=== PATIENT | male | born 1980 | race Two or more races ===

== ENCOUNTER 2017-04-23 08:56 | Inpatient (IN) | payer MEDICARE, BC ==
[2017-04-23] MEDS ORDERED: Sodium Chloride 0.9% 10 ML Syringe FLUSH PRN (09:38)
[2017-04-23] MEDS ORDERED: Famotidine 20 MG/2 ML SDV IVPUSH ONE (09:47)
[2017-04-23] MEDS ORDERED: Ondansetron 4 MG/2 ML SDV IVPUSH ONE (09:47)
[2017-04-23] MEDS ORDERED: Sodium Chloride 0.9% 1,000 ML IV SCH ×2 (10:00→11:00)
--- NOTE | 2017-04-23 10:40 | EDM.PDOC ---
ED HPI GENERAL MEDICAL PROBLEM - General Chief Complaint: Abdominal Pain Stated Complaint: DIVERTICULITIS Time Seen by Provider: 04/23/17 09:15 Source of Information: Reports: Patient, RN Notes Reviewed - History of Present Illness INITIAL COMMENTS - FREE TEXT/NARRATIVE: 37-year-old male comes in with abdominal pain nausea vomiting and diarrhea. He did start with abdominal discomfort 3 days ago. He was evaluated at [facility] 2 days ago. Due to history of diverticulitis and left lower abdominal discomfort was given a clinical diagnosis of diverticulitis. He was started on Cipro and Flagyl. He now has severe upper abdominal discomfort with intermittent cramping and also has developed more severe nausea, intermittent vomiting and also has been having frequent repetitive watery diarrhea. He does have history of a kidney transplant about 6 years ago. Has been doing well with that. No fever or chills. No chest pain or difficulty breathing. His mouth does feel dry Treatments RESEARCH ADVISOR: Reports: Other (see below) Other Treatments RESEARCH ADVISOR: zofran Abdominal Pain Score (Numeric/FACES): 4 - Related Data Allergies Allergy/AdvReac Type Severity Reaction Status Date / Time No Known Allergies Allergy Verified 04/23/17 09:08 Home Meds: Home Meds Albuterol Sulfate [Proair Respiclick] 1 puff INH Q4HR PRN 04/23/17 [History] Capsaicin [Zostrix 0.025% Crm] 1 applic TOP TID PRN 04/23/17 [History] Ciprofloxacin HCl [Cipro] 500 mg PO BID 04/23/17 [History] HYDROmorphone [Dilaudid] 4 mg PO ASDIRECTED PRN 04/23/17 [History] Metoprolol Tartrate [Lopressor] 12.5 mg PO BID 04/23/17 [History] Metoprolol Tartrate [Lopressor] 25 mg PO BID 04/23/17 [History] Mycophenolate Mofetil [Cellcept] 500 mg PO BID 04/23/17 [History] Omeprazole Magnesium [Prilosec Otc] 20 mg PO DAILY 04/23/17 [History] Simvastatin [Zocor] 20 mg PO BEDTIME 04/23/17 [History] Tacrolimus [Prograf] 1 mg PO BID 04/23/17 [History] metroNIDAZOLE [Flagyl] 500 mg PO TID 04/23/17 [History] traZODone HCl [Trazodone HCl] 100 mg PO BEDTIME 04/23/17 [History] Past Medical History Gastrointestinal History: Reports: Diverticulosis Genitourinary History: Reports: Dialysis, Renal Disease, Other (See Below) Other Genitourinary History: kidney transplant Musculoskeletal History: Reports: Other (See Below) Other Musculoskeletal History: ankle - Past Surgical History GI Surgical History: Reports: Appendectomy Social & Family History - Tobacco Use Smoking Status *Q: Never Smoker - Caffeine Use Caffeine Use: Reports: Soda, Tea - Recreational Drug Use Recreational Drug Use: No ED ROS GENERAL - Review of Systems Review Of Systems: See Below Constitutional: Denies: Fever, Chills, Diaphoresis HEENT: Reports: No Symptoms Respiratory: Denies: Shortness of Breath, Pleuritic Chest Pain Cardiovascular: Denies: Chest Pain GI/Abdominal: Reports: Abdominal Pain, Diarrhea, Nausea, Vomiting. Denies: Hematochezia, Melena : Reports: No Symptoms Musculoskeletal: Reports: No Symptoms Skin: Reports: No Symptoms Neurological: Reports: No Symptoms ED EXAM, GI/ABD - Physical Exam Exam: See Below General Appearance: Alert, Mild Distress Throat/Mouth: Normal Inspection, Other (Oral mucosa is somewhat dry) Head: Atraumatic. No: Facial Swelling Neck: Supple, Full Range of Motion Respiratory/Chest: No Respiratory Distress, Lungs Clear, Normal Breath Sounds Cardiovascular: Regular Rate, Rhythm GI/Abdominal: Soft, Tenderness (Mild tenderness upper mid abdomen, lower abdomen is soft and nontender at this time). No: Guarding, Rebound Back Exam: No: CVA Tenderness (L), CVA Tenderness (R) Extremities: No: Pedal Edema, Leg Pain Neurological: Alert, Oriented, No Motor/Sensory Deficits Skin Exam: Warm, Dry, Normal Color, No Rash Course - Vital Signs Last Recorded V/S: Last Vital Signs Temp 97.0 F 04/23/17 09:08 Pulse 73 04/23/17 09:08 Resp 16 04/23/17 09:08 BP 141/92 H 04/23/17 09:08 Pulse Ox 95 04/23/17 09:08 - Orders/Labs/Meds Orders: Active Orders 24 hr Category Date Time Status Peripheral IV Care [RC] . DIRECTED Care 04/23/17 09:38 Active Sodium Chloride 0.9% [Normal Saline] 1,000 ml Med 04/23/17 10:00 Active IV ONETIME Sodium Chloride 0.9% [Normal Saline] 1,000 ml Med 04/23/17 11:00 Active IV ONETIME Sodium Chloride 0.9% [Saline Flush] Med 04/23/17 09:38 Active 10 ml FLUSH ASDIRECTED PRN Peripheral IV Insertion Adult [OM.PC] Stat Oth 04/23/17 09:38 Ordered Medication Orders Sodium Chloride (Normal Saline) 1,000 mls @ 999 mls/hr IV ONETIME ALESSANDRO Last Admin: 04/23/17 10:02 Dose: 999 mls/hr Sodium Chloride (Normal Saline) 1,000 mls @ 999 mls/hr IV ONETIME ALESSANDRO Last Admin: 04/23/17 11:25 Dose: 999 mls/hr Sodium Chloride (Saline Flush) 10 ml FLUSH ASDIRECTED PRN PRN Reason: Keep Vein Open Last Admin: 04/23/17 09:54 Dose: 10 ml Labs: Laboratory Tests 04/23/17 04/23/17 04/23/17 Range/Units 09:50 09:50 09:50 WBC 9.11 H (4.23-9.07) K/mm3 RBC 4.80 (4.63-6.08) M/mm3 Hgb 13.5 L (13.7-17.5) gm/L Hct 40.4 (40.1-51.0) % MCV 84.2 (79.0-92.2) fl MCH 28.1 (25.7-32.2) pg MCHC 33.4 (32.2-35.5) g/dl RDW Std Deviation 40.9 (35.1-43.9) fL Plt Count 189 (163-337) K/mm3 MPV 10.2 (9.4-12.3) fl Neut % (Auto) 86.9 H (34.0-67.9) % Lymph % (Auto) 5.7 L (21.8-53.1) % [place] % (Auto) 6.8 (5.3-12.2) % Eos % (Auto) 0.2 L (0.8-7.0) Baso % (Auto) 0.1 (0.1-1.2) % Neut # (Auto) 7.91 H (1.78-5.38) K/mm3 Lymph # (Auto) 0.52 L (1.32-3.57) K/mm3 [place] # (Auto) 0.62 (0.30-0.82) K/mm3 Eos # (Auto) 0.02 L (0.04-0.54) K/mm3 Baso # (Auto) 0.01 (0.01-0.08) K/mm3 Manual Slide Review Abnormal smear Sodium 136 (136-145) mEq/L Potassium 4.4 (3.5-5.1) mEq/L Chloride 103 (98-107) mEq/L Carbon Dioxide 20 L (21-32) mEq/L Anion Gap 17.4 H (5-15) BUN 43 H (7-18) mg/dL Creatinine 3.1 H (0.7-1.3) mg/dL Est Cr Clr Drug Dosing 28.87 mL/min Estimated GFR (MDRD) 23 (>60) mL/min BUN/Creatinine Ratio 13.9 L (14-18) Glucose 143 H (74-106) mg/dL Calcium 9.9 (8.5-10.1) mg/dL Total Bilirubin 0.5 (0.2-1.0) mg/dL AST 11 L (15-37) U/L ALT 31 (16-63) U/L Alkaline Phosphatase 100 (46-116) U/L C-Reactive Protein 15.1 H* (<1.0) mg/dL Total Protein 8.7 H (6.4-8.2) g/dl Albumin 4.2 (3.4-5.0) g/dl Globulin 4.5 gm/dL Albumin/Globulin Ratio 0.9 L (1-2) Meds: Medications Generic Name Dose Route Start Last Admin Trade Name Freq PRN Reason Stop Dose Admin Sodium Chloride 1,000 mls @ 999 mls/hr 04/23/17 10:00 04/23/17 10:02 Normal Saline IV 999 mls/hr ONETIME ALESSANDRO Administration Sodium Chloride 1,000 mls @ 999 mls/hr 04/23/17 11:00 04/23/17 11:25 Normal Saline IV 999 mls/hr ONETIME ALESSANDRO Administration Sodium Chloride 10 ml 04/23/17 09:38 04/23/17 09:54 Saline Flush FLUSH 10 ml ASDIRECTED PRN Administration Keep Vein Open Discontinued Medications Generic Name Dose Route Start Last Admin Trade Name Sheila PRN Reason Stop Dose Admin Diatrizoate Meglum/Diatrizoate Sod 90 ml 04/23/17 12:29 04/23/17 12:50 Gastrografin 37% PO 04/23/17 12:30 90 ml ONETIME ONE Administration Famotidine 20 mg 04/23/17 09:47 04/23/17 10:01 Pepcid IVPUSH 04/23/17 09:48 20 mg ONETIME ONE Administration Ondansetron HCl 4 mg 04/23/17 09:47 04/23/17 10:00 Zofran IVPUSH 04/23/17 09:48 4 mg ONETIME ONE Administration - Re-Assessments/Exams Free Text/Narrative Re-Assessment/Exam: 04/23/17 11:14. White both, 9100 with a left shift, C-reactive protein is 15. Creatinine 3.1, BUN and anion gap also elevated. Have given 1 L of fluid, started on a second liter of IV fluid. He will benefit from admission, further IV hydration and to switch over to IV antibiotics. I discussed this with Dr. Aragon our hospitalist on duty. She would like to have a CT study done realizing that with his elevated creatinine we will not be able to do IV contrast. He does feel better after IV fluid that has been given along with IV Zofran and IV Pepcid. He continues to have some mild upper mid abdominal discomfort, no major lower abdominal tenderness at this time. As noted he has had diverticulitis in the past. Departure - Departure Time of Disposition: 12:30 Disposition: Admitted As Inpatient 64 Clinical Impression: Renal insufficiency Abdominal pain Qualifiers: Abdominal location: generalized Qualified Code(s): R10.84 - Generalized abdominal pain - Discharge Information - My Orders Last 24 Hours: My Active Orders 04/23/17 09:38 Peripheral IV Care [RC] . DIRECTED Sodium Chloride 0.9% [Saline Flush] 10 ml FLUSH ASDIRECTED PRN Peripheral IV Insertion Adult [OM.PC] Stat 04/23/17 10:00 Sodium Chloride 0.9% [Normal Saline] 1,000 ml IV ONETIME 04/23/17 11:00 Sodium Chloride 0.9% [Normal Saline] 1,000 ml IV ONETIME - Assessment/Plan Last 24 Hours: My Active Orders 04/23/17 09:38 Peripheral IV Care [RC] . DIRECTED Sodium Chloride 0.9% [Saline Flush] 10 ml FLUSH ASDIRECTED PRN Peripheral IV Insertion Adult [OM.PC] Stat 04/23/17 10:00 Sodium Chloride 0.9% [Normal Saline] 1,000 ml IV ONETIME 04/23/17 11:00 Sodium Chloride 0.9% [Normal Saline] 1,000 ml IV ONETIME
[2017-04-23] MEDS ORDERED: Diatrizoate Meglumine/Diatrizoate Sodium 37% 120 ML Bottle PO ONE (12:29)
--- NOTE | 2017-04-23 13:31 | CT ---
CT abdomen and pelvis Technique: Multiple axial sections were obtained from above the dome of the diaphragm inferiorly through the pubic symphysis. Intravenous contrast not utilized. Oral contrast has been given. Comparison: No previous exam. Findings: Inflammatory change is seen around a portion of the colon at the junction of the descending and sigmoid regions. Diverticuli are seen within this area. Bowel wall thickening is seen in the area of inflammatory change. There is some extraluminal air being seen within this same area. No fluid collections to indicate abscess at this time. These findings are felt compatible with diverticulitis. Right pelvic kidney is seen felt compatible with transplant kidney. Visualized lung bases are clear. Noncontrast appearance of the liver and spleen appears within normal limits. Atrophic [place] kidneys are seen. Cyst is noted within the left kidney which measures approximately 1.2 cm. Adrenal glands show no nodule. Pancreas shows no discrete abnormality. Aorta shows no aneurysmal dilatation. No retroperitoneal adenopathy or mesenteric abnormalities are seen. No pelvic mass or adenopathy is identified. Bone window settings were reviewed which appear within normal limits for the patient's age. Impression: 1. Findings compatible with diverticulitis as described above. 2. Other incidental findings. Diagnostic code #3
--- NOTE | 2017-04-23 14:28 | PCM.HP ---
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 Had OP treatment of diverticulitis with Flagyl and Cipro. Did not have abdominal radiographic studies when seen in the clinic. Has no primary MD or healthcare provider on a regular basis. Received his kidney from his spouse, ~6 years ago. Onset of Symptoms: Reports: Gradual Duration of Symptoms: Reports: Day(s):, Getting Worse Location: Reports: Abdomen Severity: Moderate Improves with: Reports: Medication Worsens with: Reports: None Associated Symptoms: Reports: Loss of Appetite, Nausea/Vomiting Abdominal Pain Score (Numeric/FACES): 4 - Related Data Allergies/Adverse Reactions: Allergies Allergy/AdvReac Type Severity Reaction Status Date / Time No Known Allergies Allergy Verified 04/23/17 09:08 Home Medications: Home Meds Acetaminophen [Tylenol Extra Strength] 2 tab PO Q6HR PRN 04/23/17 [History] Ciprofloxacin HCl [Cipro] 500 mg PO BID 04/23/17 [History] Ergocalciferol (Vitamin D2) [Vitamin D2] 2 tab PO DAILY 04/23/17 [History] Metoprolol Tartrate [Lopressor] 12.5 mg PO BID 04/23/17 [History] Mycophenolate Mofetil [Cellcept] 500 mg PO Q12HR 04/23/17 [History] Omeprazole Magnesium [Prilosec Otc] 20 mg PO DAILY PRN 04/23/17 [History] Simvastatin [Zocor] 20 mg PO BEDTIME 04/23/17 [History] Tacrolimus [Prograf] 1 tab PO 2000 04/23/17 [History] Tacrolimus [Prograf] 2 mg PO DAILY 04/23/17 [History] metroNIDAZOLE [Flagyl] 500 mg PO TID 04/23/17 [History] traZODone HCl [Trazodone HCl] 100 mg PO BEDTIME 04/23/17 [History] Past Medical History Gastrointestinal History: Reports: Diverticulosis Genitourinary History: Reports: Dialysis, Renal Disease, Other (See Below) Other Genitourinary History: kidney transplant Musculoskeletal History: Reports: Other (See Below) Other Musculoskeletal History: ankle - Past Surgical History GI Surgical History: Reports: Appendectomy Social & Family History - Tobacco Use Smoking Status *Q: Never Smoker Second Hand Smoke Exposure: No - Caffeine Use Caffeine Use: Reports: Soda, Tea - Alcohol Use Days Per Week of Alcohol Use: 1 Number of Drinks Per Day: 1 Total Drinks Per Week: 1 - Recreational Drug Use Recreational Drug Use: No H&P Review of Systems - Review of Systems: Review Of Systems: See Below General: Reports: No Symptoms HEENT: Reports: No Symptoms Pulmonary: Reports: No Symptoms Cardiovascular: Reports: No Symptoms Gastrointestinal: Reports: Abdominal Pain, Diarrhea (watery, no blood), Nausea, Vomiting Genitourinary: Reports: No Symptoms Musculoskeletal: Reports: No Symptoms Skin: Reports: No Symptoms Psychiatric: Reports: No Symptoms Neurological: Reports: No Symptoms Hematologic/Lymphatic: Reports: No Symptoms Immunologic: Reports: No Symptoms Exam - Exam Exam: See Below - Vital Signs Vital Signs: Last Vital Signs Temp 36.1 C 04/23/17 09:08 Pulse 73 04/23/17 13:29 Resp 16 04/23/17 09:08 BP 127/87 04/23/17 13:29 Pulse Ox 99 04/23/17 13:29 Weight: 79.696 kg - Exam Quality Assessment: DVT Prophylaxis General: Alert, Oriented, Cooperative HEENT: EACs Clear, EOMI, Nares Patent, Normal Nasal Septum, Pupils Equal, Pupils Reactive Neck: Supple, Trachea Midline Lungs: Clear to Auscultation, Normal Respiratory Effort Cardiovascular: Regular Rate, Regular Rhythm Abdomen: Normal Bowel Sounds, Soft (Male) Exam: Deferred Rectal (Males) Exam: Deferred Back Exam: Normal Inspection Extremities: Normal Pulses Skin: Warm Neurological: Cranial Nerves Intact Neuro Extensive - Mental Status: Alert, Oriented x3, Normal Mood/Affect, Normal Cognition, Memory Intact Neuro Extensive - Motor, Sensory, Reflexes: CN II-XII Intact Psychiatric: Alert, Normal Affect, Normal Mood - Patient Data Result Diagrams: 04/23/17 09:50 04/23/17 09:50 *Q Meaningful Use (ADM) - VTE *Q VTE Criteria *Q: - Stroke *Q Stroke Criteria *Q: - AMI *Q AMI Criteria *Q: - Problem List (1) Renal transplant disorder SNOMED Code(s): 832131028 ICD Code: T86.10 - UNSPECIFIED COMPLICATION OF KIDNEY TRANSPLANT Status: Acute Current Visit: Yes (2) Abdominal pain SNOMED Code(s): 63139334 ICD Code: R10.9 - UNSPECIFIED ABDOMINAL PAIN Status: Acute Current Visit : Yes Qualifiers: Abdominal location: generalized Qualified Code(s): R10.84 - Generalized abdominal pain (3) Renal insufficiency SNOMED Code(s): 857546345, 829409919 ICD Code: N28.9 - DISORDER OF KIDNEY AND URETER, UNSPECIFIED Status: Acute Current Visit: Yes (4) Hypertension SNOMED Code(s): 43234702 ICD Code: I10 - ESSENTIAL (PRIMARY) HYPERTENSION Status: Acute Current Visit: Yes (5) Hyperlipidemia SNOMED Code(s): 87087697 ICD Code: E78.5 - HYPERLIPIDEMIA, UNSPECIFIED Status: Acute Current Visit : Yes (6) Diverticulitis SNOMED Code(s): 125268129 ICD Code: K57.92 - DVTRCLI OF INTEST, PART UNSP, W/O PERF OR ABSCESS W/O BLEED Status: Acute Current Visit: Yes Problem List Initiated/Reviewed/Updated: Yes Orders Last 24hrs: Active Orders 24 hr Category Date Time Status Admission Status [Patient Status] [ADT] Routine ADT 04/23/17 13:31 Active Medication Orders Sodium Chloride (Normal Saline) 1,000 mls @ 999 mls/hr IV ONETIME [facility] Last Admin: 04/23/17 10:02 Dose: 999 mls/hr Sodium Chloride (Normal Saline) 1,000 mls @ 999 mls/hr IV ONETIME [facility] Last Admin: 04/23/17 11:25 Dose: 999 mls/hr Sodium Chloride (Saline Flush) 10 ml FLUSH ASDIRECTED PRN PRN Reason: Keep Vein Open Last Admin: 04/23/17 09:54 Dose: 10 ml Assessment/Plan Comment:: Impression: S/P renal transplant on immune suppressants without follow up CKD III--->Acute renal failure secondary to dehydration Abdominal pain with diverticulitis; failed outpatient ATBs for diverticulitis Chronic HTN Hyperlipidemia History of diverticulosis Plan: IVF ATBs Pain mgt Renal transplant follow up with Dr Wilkins DVT/GI prophylaxis SW/PT/OT
[2017-04-23] MEDS ORDERED: Ondansetron 4 MG/2 ML SDV IVPUSH PRN (16:15)
[2017-04-23] MEDS ORDERED: Piperacillin/Tazobactam 4.5 GM in Sodium Chloride 0.9% 100 ML IV ONE (16:15)
[2017-04-23] MEDS ORDERED: Lactated Ringers 1,000 ML IV SCH (16:15)
[2017-04-23] MEDS ORDERED: HYDROmorphone 0.5 MG/0.5 ML Syringe IVPUSH PRN (16:22)
[2017-04-23] MEDS: metroNIDAZOLE/Normal Saline 500 MG in Premix Bag 1 BAG IV SCH (16:59)
[2017-04-23] MEDS: Metoclopramide 10 MG/2 ML SDV IVPUSH SCH ×2 (17:02→21:34)
[2017-04-23] MEDS ORDERED: TACROLIMUS 1 MG PO SCH (20:00)
[2017-04-23] MEDS ORDERED: MYCOPHENOLATE MOFETIL 250 MG PO SCH (21:00)
[2017-04-23] MEDS: Metoprolol Tartrate 25 MG Tab PO SCH (21:34)
[2017-04-23] MEDS: Acetaminophen 325 MG Tab PO PRN (22:22)
[2017-04-23] MEDS ORDERED: Temazepam 15 MG Cap PO PRN (22:58)
[2017-04-23] MEDS ORDERED: Sodium Chloride 0.45% 1,000 ML IV SCH (23:00)
[2017-04-23] MEDS ORDERED: diphenhydrAMINE 50 MG/ML SDV IVPUSH PRN (23:01)
[2017-04-23] MEDS ORDERED: LORazepam 2 MG/ML MDV IVPUSH PRN (23:04)
[2017-04-24] MEDS: metroNIDAZOLE/Normal Saline 500 MG in Premix Bag 1 BAG IV SCH ×3 (01:02→16:17)
[2017-04-24] MEDS: Piperacillin/Tazobactam 4.5 GM in Sodium Chloride 0.9% 100 ML IV SCH ×3 (01:02→16:15)
[2017-04-24] MEDS: Sodium Chloride 0.45% 1,000 ML IV SCH ×4 (01:32→21:39)
[2017-04-24] MEDS: Metoclopramide 10 MG/2 ML SDV IVPUSH SCH ×2 (05:37→09:34)
[2017-04-24] MEDS ORDERED: Acetaminophen 325 MG Tab PO ONE (08:01)
[2017-04-24] MEDS ORDERED: Magnesium Sulfate/Water 2 GM in Premix Bag 1 BAG IV ONE ×2 (08:02→12:00)
[2017-04-24] MEDS ORDERED: Aspirin 325 MG Tab.EC PO SCH (09:00)
[2017-04-24] MEDS: Metoprolol Tartrate 25 MG Tab PO SCH ×2 (09:32→20:33)
[2017-04-24] MEDS: MYCOPHENOLATE MOFETIL 500 MG PO SCH ×2 (09:33→20:34)
[2017-04-24] MEDS: TACROLIMUS 1 MG PO SCH ×2 (09:33→20:33)
[2017-04-24] MEDS: Famotidine 20 MG/2 ML SDV IVPUSH SCH (09:34)
[2017-04-24] MEDS ORDERED: Metoclopramide 10 MG/2 ML SDV IVPUSH PRN (11:21)
--- NOTE | 2017-04-24 13:06 | PCM.PN ---
- General Info Date of Service: 04/24/17 - Patient Data Vitals - most recent: Last Vital Signs Temp 37.0 C 04/24/17 11:56 Pulse 70 04/24/17 11:56 Resp 14 04/24/17 11:56 BP 149/88 H 04/24/17 11:56 Pulse Ox 96 04/24/17 11:56 Weight - most recent: 77.065 kg I&O - last 24 hours: Intake & Output 04/23/17 04/24/17 04/24/17 22:59 06:59 14:59 Intake Total 2500 Output Total 500 Balance 2000 Lab Results last 24 hrs: Laboratory Results - last 24 hr 04/24/17 04/24/17 04/24/17 Range/Units 03:25 05:10 05:10 WBC 6.23 (4.23-9.07) K/mm3 RBC 4.06 L (4.63-6.08) M/mm3 Hgb 11.6 L (13.7-17.5) gm/L Hct 34.6 L (40.1-51.0) % MCV 85.2 (79.0-92.2) fl MCH 28.6 (25.7-32.2) pg MCHC 33.5 (32.2-35.5) g/dl RDW Std Deviation 40.9 (35.1-43.9) fL Plt Count 178 (163-337) K/mm3 MPV 10.4 (9.4-12.3) fl Neut % (Auto) 88.1 H (34.0-67.9) % Lymph % (Auto) 8.5 L (21.8-53.1) % [place] % (Auto) 2.4 L (5.3-12.2) % Eos % (Auto) 0.8 (0.8-7.0) Baso % (Auto) 0.0 L (0.1-1.2) % Neut # (Auto) 5.49 H (1.78-5.38) K/mm3 Lymph # (Auto) 0.53 L (1.32-3.57) K/mm3 [place] # (Auto) 0.15 L (0.30-0.82) K/mm3 Eos # (Auto) 0.05 (0.04-0.54) K/mm3 Baso # (Auto) 0.00 L (0.01-0.08) K/mm3 Manual Slide Review Abnormal smear Sodium 135 L (136-145) mEq/L Potassium 4.3 (3.5-5.1) mEq/L Chloride 106 (98-107) mEq/L Carbon Dioxide 16 L (21-32) mEq/L Anion Gap 17.3 H (5-15) BUN 35 H (7-18) mg/dL Creatinine 2.5 H (0.7-1.3) mg/dL Est Cr Clr Drug Dosing 35.80 mL/min Estimated GFR (MDRD) 29 (>60) mL/min BUN/Creatinine Ratio 14.0 (14-18) Glucose 103 (74-106) mg/dL Calcium 8.2 L (8.5-10.1) mg/dL Phosphorus 3.4 (2.6-4.7) mg/dL Magnesium 1.1 L (1.8-2.4) mg/dl C-Reactive Protein (<1.0) mg/dL Triglycerides 63 (<150) mg/dL Cholesterol 94 (<200) mg/dL LDL Cholesterol Direct 44 (<100) mg/dL HDL Cholesterol 47.0 (40-59) mg/dL Urine Color Yellow (Yellow) Urine Appearance Clear (Clear) Urine pH 5.5 (5.0-8.0) Ur Specific [place] 1.020 (1.005-1.030) Urine Protein Trace H (Negative) Urine Glucose (UA) Negative (Negative) Urine Ketones 1+ H (Negative) Urine Occult Blood Negative (Negative) Urine Nitrite Negative (Negative) Urine Bilirubin Negative (Negative) Urine Urobilinogen 0.2 (0.2-1.0) Ur Leukocyte Esterase Trace H (Negative) Urine RBC Not seen (0-5) /hpf Urine WBC 0-5 (0-5) /hpf Ur Epithelial Cells 0-5 (0-5) /hpf Urine Bacteria Few (FEW) /hpf Urine Mucus Not seen (FEW) /hpf 04/24/17 Range/Units 05:10 WBC (4.23-9.07) K/mm3 RBC (4.63-6.08) M/mm3 Hgb (13.7-17.5) gm/L Hct (40.1-51.0) % MCV (79.0-92.2) fl MCH (25.7-32.2) pg MCHC (32.2-35.5) g/dl RDW Std Deviation (35.1-43.9) fL Plt Count (163-337) K/mm3 MPV (9.4-12.3) fl Neut % (Auto) (34.0-67.9) % Lymph % (Auto) (21.8-53.1) % [place] % (Auto) (5.3-12.2) % Eos % (Auto) (0.8-7.0) Baso % (Auto) (0.1-1.2) % Neut # (Auto) (1.78-5.38) K/mm3 Lymph # (Auto) (1.32-3.57) K/mm3 [place] # (Auto) (0.30-0.82) K/mm3 Eos # (Auto) (0.04-0.54) K/mm3 Baso # (Auto) (0.01-0.08) K/mm3 Manual Slide Review Sodium (136-145) mEq/L Potassium (3.5-5.1) mEq/L Chloride (98-107) mEq/L Carbon Dioxide (21-32) mEq/L Anion Gap (5-15) BUN (7-18) mg/dL Creatinine (0.7-1.3) mg/dL Est Cr Clr Drug Dosing mL/min Estimated GFR (MDRD) (>60) mL/min BUN/Creatinine Ratio (14-18) Glucose (74-106) mg/dL Calcium (8.5-10.1) mg/dL Phosphorus (2.6-4.7) mg/dL Magnesium (1.8-2.4) mg/dl C-Reactive Protein 8.0 H* (<1.0) mg/dL Triglycerides (<150) mg/dL Cholesterol (<200) mg/dL LDL Cholesterol Direct (<100) mg/dL HDL Cholesterol (40-59) mg/dL Urine Color (Yellow) Urine Appearance (Clear) Urine pH (5.0-8.0) Ur Specific [place] (1.005-1.030) Urine Protein (Negative) Urine Glucose (UA) (Negative) Urine Ketones (Negative) Urine Occult Blood (Negative) Urine Nitrite (Negative) Urine Bilirubin (Negative) Urine Urobilinogen (0.2-1.0) Ur Leukocyte Esterase (Negative) Urine RBC (0-5) /hpf Urine WBC (0-5) /hpf Ur Epithelial Cells (0-5) /hpf Urine Bacteria (FEW) /hpf Urine Mucus (FEW) /hpf Med Orders - Current: Current Medications Acetaminophen (Tylenol) 650 mg PO Q6H PRN PRN Reason: Pain/Fever Last Admin: 04/23/17 22:22 Dose: 650 mg Diphenhydramine HCl (Benadryl) 25 mg IVPUSH Q8H PRN PRN Reason: Itching Famotidine (Pepcid) 20 mg IVPUSH DAILY [facility] Last Admin: 04/24/17 09:34 Dose: 20 mg Hydromorphone HCl (Dilaudid) 0.5 mg IVPUSH Q4H PRN PRN Reason: Pain (moderate 4-6) Metronidazole 500 mg/ Premix 100 mls @ 100 mls/hr IV Q8H [facility] Last Admin: 04/24/17 09:43 Dose: 100 mls/hr Piperacillin Sod/Tazobactam (Sod 4.5 gm/ Sodium Chloride) 100 mls @ 25 mls/hr IV Q8H [facility] Last Admin: 04/24/17 09:50 Dose: 25 mls/hr Sodium Chloride (Sodium Chloride 0.45%) 1,000 mls @ 150 mls/hr IV ASDIRECTED [facility] Last Admin: 04/24/17 08:28 Dose: 150 mls/hr Magnesium Sulfate 2 gm/ Premix 50 mls @ 25 mls/hr IV ONETIME ONE Stop: 04/24/17 13:59 Lorazepam (Ativan) 1 mg IVPUSH Q8H PRN PRN Reason: Anxiety Metoclopramide HCl (Reglan) 10 mg IVPUSH Q6H PRN PRN Reason: NAUSEA Metoprolol Tartrate (Lopressor) 12.5 mg PO BID [facility] Last Admin: 04/24/17 09:32 Dose: 12.5 mg Ondansetron HCl (Zofran) 4 mg IVPUSH Q8H PRN PRN Reason: Nausea/Vomiting Tacrolimus 1 Mg Cap (*Patient's Own*) 0 each PO DAILY [facility] Last Admin: 04/24/17 09:33 Dose: 2 each Mycophenolate Mofetil 500mg Tabs * Patient's Own* 0 each PO Q12HR [facility] Last Admin: 04/24/17 09:33 Dose: 500 each Tacrolimus 1 Mg Cap (*Patient's Own*) 0 each PO DAILY@2000 [facility] Sodium Chloride (Saline Flush) 10 ml FLUSH ASDIRECTED PRN PRN Reason: Keep Vein Open Last Admin: 04/23/17 09:54 Dose: 10 ml Temazepam (Restoril) 15 mg PO BEDTIME PRN PRN Reason: Insomnia Discontinued Medications Acetaminophen (Tylenol) 650 mg PO NOW ONE Stop: 04/24/17 08:02 Last Admin: 04/24/17 08:28 Dose: 650 mg Aspirin (Ecotrin) 325 mg PO DAILY [facility] Diatrizoate Meglum/Diatrizoate Sod (Gastrografin 37%) 90 ml PO ONETIME ONE Stop: 04/23/17 12:30 Last Admin: 04/23/17 12:50 Dose: 90 ml Famotidine (Pepcid) 20 mg IVPUSH ONETIME ONE Stop: 04/23/17 09:48 Last Admin: 04/23/17 10:01 Dose: 20 mg Sodium Chloride (Normal Saline) 1,000 mls @ 999 mls/hr IV ONETIME [facility] Last Admin: 04/23/17 10:02 Dose: 999 mls/hr Sodium Chloride (Normal Saline) 1,000 mls @ 999 mls/hr IV ONETIME [facility] Last Admin: 04/23/17 11:25 Dose: 999 mls/hr Lactated Ringer's (Ringers, Lactated) 1,000 mls @ 100 mls/hr IV ASDIRECTED [facility] Piperacillin Sod/Tazobactam (Sod 4.5 gm/ Sodium Chloride) 100 mls @ 200 mls/hr IV ONETIME ONE Stop: 04/23/17 16:44 Last Admin: 04/23/17 16:59 Dose: 200 mls/hr Sodium Chloride (Sodium Chloride 0.45%) 1,000 mls @ 999 mls/hr IV ASDIRECTED [facility] Stop: 04/24/17 00:01 Last Admin: 04/23/17 23:32 Dose: 999 mls/hr Metoclopramide HCl (Reglan) 10 mg IVPUSH Q6H [facility] Last Admin: 04/24/17 09:34 Dose: 10 mg Mycophenolate Mofetil (Cellcept) 500 mg PO Q12HR [facility] Last Admin: 04/23/17 21:34 Dose: 500 mg Ondansetron HCl (Zofran) 4 mg IVPUSH ONETIME ONE Stop: 04/23/17 09:48 Last Admin: 04/23/17 10:00 Dose: 4 mg Tacrolimus (Prograf) 1 mg PO 2000 [facility] Last Admin: 04/23/17 21:33 Dose: 1 mg - Problem List & Annotations (1) Renal transplant disorder SNOMED Code(s): 555770219 Code(s): T86.10 - UNSPECIFIED COMPLICATION OF KIDNEY TRANSPLANT Status: Acute Current Visit: Yes (2) Abdominal pain SNOMED Code(s): 98183477 Code(s): R10.9 - UNSPECIFIED ABDOMINAL PAIN Status: Acute Current Visit: Yes Qualifiers: Abdominal location: generalized Qualified Code(s): R10.84 - Generalized abdominal pain (3) Renal insufficiency SNOMED Code(s): 012216975, 500872756 Code(s): N28.9 - DISORDER OF KIDNEY AND URETER, UNSPECIFIED Status: Acute Current Visit: Yes (4) Hypertension SNOMED Code(s): 77283025 Code(s): I10 - ESSENTIAL (PRIMARY) HYPERTENSION Status: Acute Current Visit: Yes (5) Hyperlipidemia SNOMED Code(s): 59874495 Code(s): E78.5 - HYPERLIPIDEMIA, UNSPECIFIED Status: Acute Current Visit : Yes (6) Diverticulitis SNOMED Code(s): 204879464 Code(s): K57.92 - DVTRCLI OF INTEST, PART UNSP, W/O PERF OR ABSCESS W/O BLEED Status: Acute Current Visit: Yes - My Orders Last 24 Hours: My Active Orders 04/23/17 16:00 metroNIDAZOLE/Normal Saline [Flagyl 500 MG in NS 100 ML] 500 mg Premix Bag 1 bag IV Q8H 04/23/17 16:11 Activity as Tolerated [RC] BID Vital Signs [RC] Q4HR 04/23/17 16:15 Ondansetron [Zofran] 4 mg IVPUSH Q8H PRN 04/23/17 16:22 HYDROmorphone [Dilaudid] 0.5 mg IVPUSH Q4H PRN 04/23/17 16:59 Antiembolic Devices [RC] QSHIFT [place] Hose [Antiembolic Hose] [OM.PC] Routine 04/23/17 18:58 Code Status [Resuscitation Status] Routine 04/23/17 21:00 Metoprolol Tartrate [Lopressor] 12.5 mg PO BID 04/23/17 21:57 Acetaminophen [Tylenol] 650 mg PO Q6H PRN 04/23/17 22:57 Blood Culture x2 Reflex Set [OM.PC] Stat 04/23/17 22:58 Temazepam [Restoril] 15 mg PO BEDTIME PRN 04/23/17 23:01 diphenhydrAMINE [Benadryl] 25 mg IVPUSH Q8H PRN 04/23/17 23:03 TACROLIMUS [REF] Routine 04/23/17 23:04 LORazepam [Ativan] 1 mg IVPUSH Q8H PRN 04/23/17 23:07 TACROLIMUS [REF] Routine 04/23/17 23:36 CULTURE BLOOD [BC] Stat 04/23/17 23:54 CULTURE BLOOD [BC] Stat 04/24/17 00:00 Piperacillin/Tazobactam [Zosyn] 4.5 gm Sodium Chloride 0.9% [Normal Saline] 100 ml IV Q8H Sodium Chloride 0.45% 1,000 ml IV ASDIRECTED 04/24/17 08:00 Consult to Physical Therapy [PT Evaluation and Treatment] [CONS] Routine Consult to Clinical Rn Manager [CONS] Routine 04/24/17 09:00 Consult to Occupational Therapy [OT Evaluation and Treatment] [CONS] Routine Famotidine [Pepcid] 20 mg IVPUSH DAILY Patient's Own Medication [Ptom] 0 each PO DAILY Patient's Own Medication [Ptom] 0 each PO Q12HR 04/24/17 11:21 Metoclopramide [Reglan] 10 mg IVPUSH Q6H PRN 04/24/17 12:00 Magnesium Sulfate/Water [Magnesium Sulfate 2 GM in Water 50 ML] 2 gm Premix Bag 1 bag IV ONETIME 04/24/17 20:00 Patient's Own Medication [Ptom] 0 each PO DAILY@199904/24/17 Lunch Renal Non-Dialysis Diet [DIET] 04/25/17 05:00 BMP [BASIC METABOLIC PANEL,BMP] [CHEM] DAILY CBC WITH AUTO DIFF [HEME] DAILY MAGNESIUM [CHEM] DAILY PHOSPHORUS [CHEM] DAILY 04/26/17 05:00 BMP [BASIC METABOLIC PANEL,BMP] [CHEM] DAILY CBC WITH AUTO DIFF [HEME] DAILY MAGNESIUM [CHEM] DAILY PHOSPHORUS [CHEM] DAILY 04/27/17 05:00 BMP [BASIC METABOLIC PANEL,BMP] [CHEM] DAILY CBC WITH AUTO DIFF [HEME] DAILY MAGNESIUM [CHEM] DAILY PHOSPHORUS [CHEM] DAILY - Plan Plan:: Impression: S/P renal transplant on immune suppressants without follow up CKD III--->Acute renal failure secondary to dehydration Abdominal pain with diverticulitis; failed outpatient ATBs for diverticulitis Chronic HTN Hyperlipidemia History of diverticulosis Plan: IVF ATBs Pain mgt Renal transplant follow up with Dr Wilkins DVT/GI prophylaxis SW/PT/OT
--- NOTE | 2017-04-24 14:05 | PCM.PN ---
<Ashlee Edmondson - Last Filed: 04/25/17 12:19> - General Info Date of Service: 04/24/17 Admission Dx/Problem (Free Text): Admission Diagnosis/Problem Admission Diagnosis/Problem Renal insufficiency -Renal function improved=creat to 2.5 from 3.1. Magnesium 1.1, replaced with 2gm IV infusion -Diverticulitis-pain is improved dramatically from admission per patient report. CRP to 8.0 VSS- low grade fever 100.7 treated with tylenol Functional Status: Reports: pain controlled, tolerating diet, ambulating, urinating - Review of Systems Pulmonary: Reports: no symptoms Cardiovascular: Reports: No Symptoms Gastrointestinal: Reports: Abdominal pain. Denies: Nausea, Vomiting Genitourinary: Reports: no symptoms Musculoskeletal: Reports: no symptoms Skin: Reports: no symptoms Neurological: Reports: No Symptoms Psychiatric: Reports: no symptoms - Patient Data Vitals - most recent: Last Vital Signs Temp 98.6 F 04/24/17 11:56 Pulse 70 04/24/17 11:56 Resp 14 04/24/17 11:56 BP 149/88 H 04/24/17 11:56 Pulse Ox 96 04/24/17 11:56 Weight - most recent: 77.065 kg I&O - last 24 hours: Intake & Output 04/23/17 04/24/17 04/24/17 22:59 06:59 14:59 Intake Total 2500 Output Total 500 Balance 2000 Lab Results last 24 hrs: Laboratory Results - last 24 hr 04/24/17 04/24/17 04/24/17 Range/Units 03:25 05:10 05:10 WBC 6.23 (4.23-9.07) K/mm3 RBC 4.06 L (4.63-6.08) M/mm3 Hgb 11.6 L (13.7-17.5) gm/L Hct 34.6 L (40.1-51.0) % MCV 85.2 (79.0-92.2) fl MCH 28.6 (25.7-32.2) pg MCHC 33.5 (32.2-35.5) g/dl RDW Std Deviation 40.9 (35.1-43.9) fL Plt Count 178 (163-337) K/mm3 MPV 10.4 (9.4-12.3) fl Neut % (Auto) 88.1 H (34.0-67.9) % Lymph % (Auto) 8.5 L (21.8-53.1) % Grand % (Auto) 2.4 L (5.3-12.2) % Eos % (Auto) 0.8 (0.8-7.0) Baso % (Auto) 0.0 L (0.1-1.2) % Neut # (Auto) 5.49 H (1.78-5.38) K/mm3 Lymph # (Auto) 0.53 L (1.32-3.57) K/mm3 Grand # (Auto) 0.15 L (0.30-0.82) K/mm3 Eos # (Auto) 0.05 (0.04-0.54) K/mm3 Baso # (Auto) 0.00 L (0.01-0.08) K/mm3 Manual Slide Review Abnormal smear Sodium 135 L (136-145) mEq/L Potassium 4.3 (3.5-5.1) mEq/L Chloride 106 (98-107) mEq/L Carbon Dioxide 16 L (21-32) mEq/L Anion Gap 17.3 H (5-15) BUN 35 H (7-18) mg/dL Creatinine 2.5 H (0.7-1.3) mg/dL Est Cr Clr Drug Dosing 35.80 mL/min Estimated GFR (MDRD) 29 (>60) mL/min BUN/Creatinine Ratio 14.0 (14-18) Glucose 103 (74-106) mg/dL Calcium 8.2 L (8.5-10.1) mg/dL Phosphorus 3.4 (2.6-4.7) mg/dL Magnesium 1.1 L (1.8-2.4) mg/dl C-Reactive Protein (<1.0) mg/dL Triglycerides 63 (<150) mg/dL Cholesterol 94 (<200) mg/dL LDL Cholesterol Direct 44 (<100) mg/dL HDL Cholesterol 47.0 (40-59) mg/dL Urine Color Yellow (Yellow) Urine Appearance Clear (Clear) Urine pH 5.5 (5.0-8.0) Ur Specific [place] 1.020 (1.005-1.030) Urine Protein Trace H (Negative) Urine Glucose (UA) Negative (Negative) Urine Ketones 1+ H (Negative) Urine Occult Blood Negative (Negative) Urine Nitrite Negative (Negative) Urine Bilirubin Negative (Negative) Urine Urobilinogen 0.2 (0.2-1.0) Ur Leukocyte Esterase Trace H (Negative) Urine RBC Not seen (0-5) /hpf Urine WBC 0-5 (0-5) /hpf Ur Epithelial Cells 0-5 (0-5) /hpf Urine Bacteria Few (FEW) /hpf Urine Mucus Not seen (FEW) /hpf 04/24/17 Range/Units 05:10 WBC (4.23-9.07) K/mm3 RBC (4.63-6.08) M/mm3 Hgb (13.7-17.5) gm/L Hct (40.1-51.0) % MCV (79.0-92.2) fl MCH (25.7-32.2) pg MCHC (32.2-35.5) g/dl RDW Std Deviation (35.1-43.9) fL Plt Count (163-337) K/mm3 MPV (9.4-12.3) fl Neut % (Auto) (34.0-67.9) % Lymph % (Auto) (21.8-53.1) % Grand % (Auto) (5.3-12.2) % Eos % (Auto) (0.8-7.0) Baso % (Auto) (0.1-1.2) % Neut # (Auto) (1.78-5.38) K/mm3 Lymph # (Auto) (1.32-3.57) K/mm3 Grand # (Auto) (0.30-0.82) K/mm3 Eos # (Auto) (0.04-0.54) K/mm3 Baso # (Auto) (0.01-0.08) K/mm3 Manual Slide Review Sodium (136-145) mEq/L Potassium (3.5-5.1) mEq/L Chloride (98-107) mEq/L Carbon Dioxide (21-32) mEq/L Anion Gap (5-15) BUN (7-18) mg/dL Creatinine (0.7-1.3) mg/dL Est Cr Clr Drug Dosing mL/min Estimated GFR (MDRD) (>60) mL/min BUN/Creatinine Ratio (14-18) Glucose (74-106) mg/dL Calcium (8.5-10.1) mg/dL Phosphorus (2.6-4.7) mg/dL Magnesium (1.8-2.4) mg/dl C-Reactive Protein 8.0 H* (<1.0) mg/dL Triglycerides (<150) mg/dL Cholesterol (<200) mg/dL LDL Cholesterol Direct (<100) mg/dL HDL Cholesterol (40-59) mg/dL Urine Color (Yellow) Urine Appearance (Clear) Urine pH (5.0-8.0) Ur Specific [place] (1.005-1.030) Urine Protein (Negative) Urine Glucose (UA) (Negative) Urine Ketones (Negative) Urine Occult Blood (Negative) Urine Nitrite (Negative) Urine Bilirubin (Negative) Urine Urobilinogen (0.2-1.0) Ur Leukocyte Esterase (Negative) Urine RBC (0-5) /hpf Urine WBC (0-5) /hpf Ur Epithelial Cells (0-5) /hpf Urine Bacteria (FEW) /hpf Urine Mucus (FEW) /hpf Med Orders - Current: Current Medications Acetaminophen (Tylenol) 650 mg PO Q6H PRN PRN Reason: Pain/Fever Last Admin: 04/23/17 22:22 Dose: 650 mg Diphenhydramine HCl (Benadryl) 25 mg IVPUSH Q8H PRN PRN Reason: Itching Famotidine (Pepcid) 20 mg IVPUSH DAILY [facility] Last Admin: 04/24/17 09:34 Dose: 20 mg Hydromorphone HCl (Dilaudid) 0.5 mg IVPUSH Q4H PRN PRN Reason: Pain (moderate 4-6) Metronidazole 500 mg/ Premix 100 mls @ 100 mls/hr IV Q8H [facility] Last Admin: 04/24/17 09:43 Dose: 100 mls/hr Piperacillin Sod/Tazobactam (Sod 4.5 gm/ Sodium Chloride) 100 mls @ 25 mls/hr IV Q8H [facility] Last Admin: 04/24/17 09:50 Dose: 25 mls/hr Sodium Chloride (Sodium Chloride 0.45%) 1,000 mls @ 150 mls/hr IV ASDIRECTED [facility] Last Admin: 04/24/17 08:28 Dose: 150 mls/hr Lorazepam (Ativan) 1 mg IVPUSH Q8H PRN PRN Reason: Anxiety Metoclopramide HCl (Reglan) 10 mg IVPUSH Q6H PRN PRN Reason: NAUSEA Metoprolol Tartrate (Lopressor) 12.5 mg PO BID [facility] Last Admin: 04/24/17 09:32 Dose: 12.5 mg Ondansetron HCl (Zofran) 4 mg IVPUSH Q8H PRN PRN Reason: Nausea/Vomiting Tacrolimus 1 Mg Cap (*Patient's Own*) 0 each PO DAILY [facility] Last Admin: 04/24/17 09:33 Dose: 2 each Mycophenolate Mofetil 500mg Tabs * Patient's Own* 0 each PO Q12HR [facility] Last Admin: 04/24/17 09:33 Dose: 500 each Tacrolimus 1 Mg Cap (*Patient's Own*) 0 each PO DAILY@2000 [facility] Sodium Chloride (Saline Flush) 10 ml FLUSH ASDIRECTED PRN PRN Reason: Keep Vein Open Last Admin: 04/23/17 09:54 Dose: 10 ml Temazepam (Restoril) 15 mg PO BEDTIME PRN PRN Reason: Insomnia Discontinued Medications Acetaminophen (Tylenol) 650 mg PO NOW ONE Stop: 04/24/17 08:02 Last Admin: 04/24/17 08:28 Dose: 650 mg Aspirin (Ecotrin) 325 mg PO DAILY [facility] Diatrizoate Meglum/Diatrizoate Sod (Gastrografin 37%) 90 ml PO ONETIME ONE Stop: 04/23/17 12:30 Last Admin: 04/23/17 12:50 Dose: 90 ml Famotidine (Pepcid) 20 mg IVPUSH ONETIME ONE Stop: 04/23/17 09:48 Last Admin: 04/23/17 10:01 Dose: 20 mg Sodium Chloride (Normal Saline) 1,000 mls @ 999 mls/hr IV ONETIME [facility] Last Admin: 04/23/17 10:02 Dose: 999 mls/hr Sodium Chloride (Normal Saline) 1,000 mls @ 999 mls/hr IV ONETIME [facility] Last Admin: 04/23/17 11:25 Dose: 999 mls/hr Lactated Ringer's (Ringers, Lactated) 1,000 mls @ 100 mls/hr IV ASDIRECTED [facility] Piperacillin Sod/Tazobactam (Sod 4.5 gm/ Sodium Chloride) 100 mls @ 200 mls/hr IV ONETIME ONE Stop: 04/23/17 16:44 Last Admin: 04/23/17 16:59 Dose: 200 mls/hr Sodium Chloride (Sodium Chloride 0.45%) 1,000 mls @ 999 mls/hr IV ASDIRECTED [facility] Stop: 04/24/17 00:01 Last Admin: 04/23/17 23:32 Dose: 999 mls/hr Magnesium Sulfate 2 gm/ Premix 50 mls @ 25 mls/hr IV ONETIME ONE Stop: 04/24/17 13:59 Last Admin: 04/24/17 13:22 Dose: 25 mls/hr Metoclopramide HCl (Reglan) 10 mg IVPUSH Q6H [facility] Last Admin: 04/24/17 09:34 Dose: 10 mg Mycophenolate Mofetil (Cellcept) 500 mg PO Q12HR [facility] Last Admin: 04/23/17 21:34 Dose: 500 mg Ondansetron HCl (Zofran) 4 mg IVPUSH ONETIME ONE Stop: 04/23/17 09:48 Last Admin: 04/23/17 10:00 Dose: 4 mg Tacrolimus (Prograf) 1 mg PO 2000 [facility] Last Admin: 04/23/17 21:33 Dose: 1 mg - Exam General: alert, oriented, cooperative, no acute distress HEENT: Pupils equal, Pupils reactive, EOMI Neck: supple, trachea midline Lungs: Clear to auscultation, Normal respiratory effort Cardiovascular: Regular Rate, Regular Rhythm, No Murmurs Abdomen: bowel sounds present, soft, tenderness (Male) Exam: Deferred Back Exam: Normal Inspection, Full Range of Motion Extremities: no edema Peripheral Pulses: 2+: Dorsalis Pedis (L), Dorsalis Pedis (R) Skin: warm, dry, intact, other (previous dialysis fistula to left forearm) Neurological: no new focal deficit Psy/Mental Status: alert, normal affect, normal mood - Problem List & Annotations (1) Abdominal pain SNOMED Code(s): 64831296 Code(s): R10.9 - UNSPECIFIED ABDOMINAL PAIN Status: Acute Priority: Medium Current Visit: Yes Qualifiers: Abdominal location: generalized Qualified Code(s): R10.84 - Generalized abdominal pain (2) Diverticulitis SNOMED Code(s): 344982515 Code(s): K57.92 - DVTRCLI OF INTEST, PART UNSP, W/O PERF OR ABSCESS W/O BLEED Status: Acute Priority: Medium Current Visit: Yes (3) Renal insufficiency SNOMED Code(s): 761887982, 767991180 Code(s): N28.9 - DISORDER OF KIDNEY AND URETER, UNSPECIFIED Status: Acute Priority: High Current Visit: Yes (4) Hypertension SNOMED Code(s): 07854559 Code(s): I10 - ESSENTIAL (PRIMARY) HYPERTENSION Status: Acute Priority: Medium Current Visit: Yes (5) Renal transplant disorder SNOMED Code(s): 037677460 Code(s): T86.10 - UNSPECIFIED COMPLICATION OF KIDNEY TRANSPLANT Status: Acute Priority: High Current Visit: Yes - Problem List Review Problem List Initiated/Reviewed/Updated: Yes - Plan Plan:: Impression: -S/P renal transplant on immune suppressants without follow up -CKD III--->Acute renal failure secondary to dehydration--improved -Abdominal pain with diverticulitis; failed outpatient ATBs for diverticulitis- improved Chronic HTN Hyperlipidemia History of diverticulosis Plan: IVF Mg 2gm IV ATBs Pain mgt Renal transplant follow up with [facility] DVT/GI prophylaxis SW PT/OT <Heaven Aragon - Last Filed: 04/25/17 16:33> - Patient Data Vitals - most recent: Last Vital Signs Temp 37.1 C 04/25/17 15:41 Pulse 75 04/25/17 15:41 Resp 12 04/25/17 15:41 BP 122/91 H 04/25/17 15:41 Pulse Ox 96 04/25/17 15:41 I&O - last 24 hours: Intake & Output 04/25/17 04/25/17 04/25/17 06:59 14:59 22:59 Intake Total 2452 120 3200 Output Total 1350 1900 Balance 4057 506 4141 Lab Results last 24 hrs: Laboratory Results - last 24 hr 04/24/17 04/25/17 04/25/17 Range/Units 18:10 06: 06:17 WBC 5.44 (4.23-9.07) K/mm3 RBC 3.98 L (4.63-6.08) M/mm3 Hgb 11.3 L (13.7-17.5) gm/L Hct 33.5 L (40.1-51.0) % MCV 84.2 (79.0-92.2) fl MCH 28.4 (25.7-32.2) pg MCHC 33.7 (32.2-35.5) g/dl RDW Std Deviation 39.7 (35.1-43.9) fL Plt Count 186 (163-337) K/mm3 MPV 9.7 (9.4-12.3) fl Neut % (Auto) 76.4 H (34.0-67.9) % Lymph % (Auto) 11.6 L (21.8-53.1) % Grand % (Auto) 7.4 (5.3-12.2) % Eos % (Auto) 4.2 (0.8-7.0) Baso % (Auto) 0.0 L (0.1-1.2) % Neut # (Auto) 4.16 (1.78-5.38) K/mm3 Lymph # (Auto) 0.63 L (1.32-3.57) K/mm3 Grand # (Auto) 0.40 (0.30-0.82) K/mm3 Eos # (Auto) 0.23 (0.04-0.54) K/mm3 Baso # (Auto) 0.00 L (0.01-0.08) K/mm3 Sodium 140 (136-145) mEq/L Potassium 3.8 (3.5-5.1) mEq/L Chloride 108 H (98-107) mEq/L Carbon Dioxide 17 L (21-32) mEq/L Anion Gap 18.8 H (5-15) BUN 24 H (7-18) mg/dL Creatinine 1.9 H (0.7-1.3) mg/dL Est Cr Clr Drug Dosing 47.10 mL/min Estimated GFR (MDRD) 40 (>60) mL/min BUN/Creatinine Ratio 12.6 L (14-18) Glucose 111 H (74-106) mg/dL Calcium 8.5 (8.5-10.1) mg/dL Phosphorus 2.5 L (2.6-4.7) mg/dL Magnesium 1.7 L 1.5 L (1.8-2.4) mg/dl C-Reactive Protein (<1.0) mg/dL Urine Color (Yellow) Urine Appearance (Clear) Urine pH (5.0-8.0) Ur Specific [place] (1.005-1.030) Urine Protein (Negative) Urine Glucose (UA) (Negative) Urine Ketones (Negative) Urine Occult Blood (Negative) Urine Nitrite (Negative) Urine Bilirubin (Negative) Urine Urobilinogen (0.2-1.0) Ur Leukocyte Esterase (Negative) Urine RBC (0-5) /hpf Urine WBC (0-5) /hpf Ur Epithelial Cells (0-5) /hpf Urine Bacteria (FEW) /hpf Urine Mucus (FEW) /hpf 04/25/17 04/25/17 Range/Units 06:17 11:40 WBC (4.23-9.07) K/mm3 RBC (4.63-6.08) M/mm3 Hgb (13.7-17.5) gm/L Hct (40.1-51.0) % MCV (79.0-92.2) fl MCH (25.7-32.2) pg MCHC (32.2-35.5) g/dl RDW Std Deviation (35.1-43.9) fL Plt Count (163-337) K/mm3 MPV (9.4-12.3) fl Neut % (Auto) (34.0-67.9) % Lymph % (Auto) (21.8-53.1) % Grand % (Auto) (5.3-12.2) % Eos % (Auto) (0.8-7.0) Baso % (Auto) (0.1-1.2) % Neut # (Auto) (1.78-5.38) K/mm3 Lymph # (Auto) (1.32-3.57) K/mm3 Grand # (Auto) (0.30-0.82) K/mm3 Eos # (Auto) (0.04-0.54) K/mm3 Baso # (Auto) (0.01-0.08) K/mm3 Sodium (136-145) mEq/L Potassium (3.5-5.1) mEq/L Chloride (98-107) mEq/L Carbon Dioxide (21-32) mEq/L Anion Gap (5-15) BUN (7-18) mg/dL Creatinine (0.7-1.3) mg/dL Est Cr Clr Drug Dosing mL/min Estimated GFR (MDRD) (>60) mL/min BUN/Creatinine Ratio (14-18) Glucose (74-106) mg/dL Calcium (8.5-10.1) mg/dL Phosphorus (2.6-4.7) mg/dL Magnesium (1.8-2.4) mg/dl C-Reactive Protein 11.3 H* (<1.0) mg/dL Urine Color Light yellow (Yellow) Urine Appearance Clear (Clear) Urine pH 6.0 (5.0-8.0) Ur Specific [place] 1.015 (1.005-1.030) Urine Protein Negative (Negative) Urine Glucose (UA) Negative (Negative) Urine Ketones Trace H (Negative) Urine Occult Blood Negative (Negative) Urine Nitrite Negative (Negative) Urine Bilirubin Negative (Negative) Urine Urobilinogen 0.2 (0.2-1.0) Ur Leukocyte Esterase Negative (Negative) Urine RBC Not seen (0-5) /hpf Urine WBC Not seen (0-5) /hpf Ur Epithelial Cells Not seen (0-5) /hpf Urine Bacteria Not seen (FEW) /hpf Urine Mucus Not seen (FEW) /hpf Paulo Results last 24 hrs: Microbiology 04/23/17 23:54 Aerobic Blood Culture - Preliminary Blood - Venous - Lab Draw NO GROWTH AFTER 1 DAY Anaerobic Blood Culture - Preliminary NO GROWTH AFTER 1 DAY 04/23/17 23:36 Aerobic Blood Culture - Preliminary Blood - Venous NO GROWTH AFTER 1 DAY Anaerobic Blood Culture - Preliminary NO GROWTH AFTER 1 DAY Med Orders - Current: Current Medications Acetaminophen (Tylenol) 650 mg PO Q6H PRN PRN Reason: Pain/Fever Last Admin: 04/25/17 09:00 Dose: 650 mg Diphenhydramine HCl (Benadryl) 25 mg IVPUSH Q8H PRN PRN Reason: Itching Famotidine (Pepcid) 20 mg PO DAILY [facility] Last Admin: 04/25/17 08:59 Dose: Not Given Hydromorphone HCl (Dilaudid) 0.5 mg IVPUSH Q4H PRN PRN Reason: Pain (moderate 4-6) Metronidazole 500 mg/ Premix 100 mls @ 100 mls/hr IV Q8H [facility] Last Admin: 04/25/17 15:43 Dose: 100 mls/hr Piperacillin Sod/Tazobactam (Sod 4.5 gm/ Sodium Chloride) 100 mls @ 25 mls/hr IV Q8H [facility] Last Admin: 04/25/17 15:44 Dose: 25 mls/hr Lorazepam (Ativan) 1 mg IVPUSH Q8H PRN PRN Reason: Anxiety Magnesium Oxide (Magnesium Oxide) 400 mg PO BID [facility] Last Admin: 04/25/17 09:00 Dose: 400 mg Metoclopramide HCl (Reglan) 10 mg IVPUSH Q6H PRN PRN Reason: NAUSEA Metoprolol Tartrate (Lopressor) 12.5 mg PO BID [facility] Last Admin: 04/25/17 08:03 Dose: 12.5 mg Ondansetron HCl (Zofran) 4 mg IVPUSH Q8H PRN PRN Reason: Nausea/Vomiting Tacrolimus 1 Mg Cap (*Patient's Own*) 0 each PO DAILY [facility] Last Admin: 04/25/17 08:10 Dose: 2 each Mycophenolate Mofetil 500mg Tabs * Patient's Own* 0 each PO Q12HR [facility] Last Admin: 04/25/17 08:09 Dose: 500 each Tacrolimus 1 Mg Cap (*Patient's Own*) 0 each PO DAILY@1999 [facility] Last Admin: 04/24/17 20:33 Dose: 1 each Sodium Chloride (Saline Flush) 10 ml FLUSH ASDIRECTED PRN PRN Reason: Keep Vein Open Last Admin: 04/23/17 09:54 Dose: 10 ml Temazepam (Restoril) 15 mg PO BEDTIME PRN PRN Reason: Insomnia Discontinued Medications Acetaminophen (Tylenol) 650 mg PO NOW ONE Stop: 04/24/17 08:02 Last Admin: 04/24/17 08:28 Dose: 650 mg Aspirin (Ecotrin) 325 mg PO DAILY [facility] Diatrizoate Meglum/Diatrizoate Sod (Gastrografin 37%) 90 ml PO ONETIME ONE Stop: 04/23/17 12:30 Last Admin: 04/23/17 12:50 Dose: 90 ml Famotidine (Pepcid) 20 mg IVPUSH ONETIME ONE Stop: 04/23/17 09:48 Last Admin: 04/23/17 10:01 Dose: 20 mg Famotidine (Pepcid) 20 mg IVPUSH DAILY [facility] Last Admin: 04/25/17 08:09 Dose: 20 mg Sodium Chloride (Normal Saline) 1,000 mls @ 999 mls/hr IV ONETIME [facility] Last Admin: 04/23/17 10:02 Dose: 999 mls/hr Sodium Chloride (Normal Saline) 1,000 mls @ 999 mls/hr IV ONETIME [facility] Last Admin: 04/23/17 11:25 Dose: 999 mls/hr Lactated Ringer's (Ringers, Lactated) 1,000 mls @ 100 mls/hr IV ASDIRECTED [facility] Piperacillin Sod/Tazobactam (Sod 4.5 gm/ Sodium Chloride) 100 mls @ 200 mls/hr IV ONETIME ONE Stop: 04/23/17 16:44 Last Admin: 04/23/17 16:59 Dose: 200 mls/hr Sodium Chloride (Sodium Chloride 0.45%) 1,000 mls @ 999 mls/hr IV ASDIRECTED [facility] Stop: 04/24/17 00:01 Last Admin: 04/23/17 23:32 Dose: 999 mls/hr Sodium Chloride (Sodium Chloride 0.45%) 1,000 mls @ 150 mls/hr IV ASDIRECTED [facility] Last Admin: 04/25/17 04:23 Dose: 150 mls/hr Magnesium Sulfate 2 gm/ Premix 50 mls @ 25 mls/hr IV ONETIME ONE Stop: 04/24/17 13:59 Last Admin: 04/24/17 13:22 Dose: 25 mls/hr Magnesium Sulfate 2 gm/ Premix 50 mls @ 25 mls/hr IV ONETIME ONE Stop: 04/25/17 10:19 Last Admin: 04/25/17 10:22 Dose: 25 mls/hr Metronidazole (Flagyl 500 Mg In Ns 100 Ml) Confirm Administered Dose 100 mls @ as directed .ROUTE .STK-MED ONE Stop: 04/25/17 15:37 Metoclopramide HCl (Reglan) 10 mg IVPUSH Q6H [facility] Last Admin: 04/24/17 09:34 Dose: 10 mg Mycophenolate Mofetil (Cellcept) 500 mg PO Q12HR [facility] Last Admin: 04/23/17 21:34 Dose: 500 mg Ondansetron HCl (Zofran) 4 mg IVPUSH ONETIME ONE Stop: 04/23/17 09:48 Last Admin: 04/23/17 10:00 Dose: 4 mg Tacrolimus (Prograf) 1 mg PO 1999 Last Admin: 04/23/17 21:33 Dose: 1 mg - Problem List & Annotations (1) Renal transplant disorder SNOMED Code(s): 018362958 Code(s): T86.10 - UNSPECIFIED COMPLICATION OF KIDNEY TRANSPLANT Status: Acute Priority: High Current Visit: Yes (2) Abdominal pain SNOMED Code(s): 63822338 Code(s): R10.9 - UNSPECIFIED ABDOMINAL PAIN Status: Resolved Priority: Medium Current Visit: Yes Qualifiers: Abdominal location: generalized Qualified Code(s): R10.84 - Generalized abdominal pain (3) Renal insufficiency SNOMED Code(s): 606926489, 506309877 Code(s): N28.9 - DISORDER OF KIDNEY AND URETER, UNSPECIFIED Status: Acute Priority: High Current Visit: Yes (4) Hypertension SNOMED Code(s): 85242165 Code(s): I10 - ESSENTIAL (PRIMARY) HYPERTENSION Status: Acute Priority: Medium Current Visit: Yes (5) Hyperlipidemia SNOMED Code(s): 73164600 Code(s): E78.5 - HYPERLIPIDEMIA, UNSPECIFIED Status: Acute Current Visit : Yes (6) Diverticulitis SNOMED Code(s): 592839191 Code(s): K57.92 - DVTRCLI OF INTEST, PART UNSP, W/O PERF OR ABSCESS W/O BLEED Status: Acute Priority: Medium Current Visit: Yes - My Orders Last 24 Hours: My Active Orders 04/24/17 20:00 Patient's Own Medication [Ptom] 0 each PO DAILY@199904/26/17 05:00 BMP [BASIC METABOLIC PANEL,BMP] [CHEM] DAILY CBC WITH AUTO DIFF [HEME] DAILY MAGNESIUM [CHEM] DAILY PHOSPHORUS [CHEM] DAILY 04/27/17 05:00 BMP [BASIC METABOLIC PANEL,BMP] [CHEM] DAILY CBC WITH AUTO DIFF [HEME] DAILY MAGNESIUM [CHEM] DAILY PHOSPHORUS [CHEM] DAILY - Plan Plan:: Gradually improving, emphasis on overall need to hydrate to maintain renal fxn was discussed on rounds. DC~96 hours.
[2017-04-24] MEDS: Acetaminophen 325 MG Tab PO PRN (21:39)
[2017-04-25] MEDS: Piperacillin/Tazobactam 4.5 GM in Sodium Chloride 0.9% 100 ML IV SCH ×3 (01:35→15:44)
[2017-04-25] MEDS: metroNIDAZOLE/Normal Saline 500 MG in Premix Bag 1 BAG IV SCH ×3 (01:35→15:43)
[2017-04-25] MEDS: Sodium Chloride 0.45% 1,000 ML IV SCH (04:23)
[2017-04-25] MEDS: Metoprolol Tartrate 25 MG Tab PO SCH ×2 (08:03→20:07)
[2017-04-25] MEDS: MYCOPHENOLATE MOFETIL 500 MG PO SCH ×2 (08:09→20:10)
[2017-04-25] MEDS: Famotidine 20 MG/2 ML SDV IVPUSH SCH (08:09)
[2017-04-25] MEDS: TACROLIMUS 1 MG PO SCH ×2 (08:10→20:10)
[2017-04-25] MEDS ORDERED: Magnesium Sulfate/Water 2 GM in Premix Bag 1 BAG IV ONE (08:20)
[2017-04-25] MEDS: Famotidine 20 MG Tab PO SCH (08:59)
[2017-04-25] MEDS: Magnesium Oxide 400 MG Tab PO SCH ×2 (09:00→20:08)
[2017-04-25] MEDS: Acetaminophen 325 MG Tab PO PRN (09:00)
--- NOTE | 2017-04-25 13:43 | PCM.PN ---
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 Had OP treatment of diverticulitis with Flagyl and Cipro. Did not have abdominal radiographic studies when seen in the clinic. Has no primary MD or healthcare provider on a regular basis. Received his kidney from his spouse, ~6 years ago. -Diverticulitis-pain is improved dramatically from admission, reports pain free today. Has had 2-3 loose stools overnight/this morning. Reports having good appetite. -Renal function continues to improve. Patient reports he doesn't take in adequate oral fluids regularly, educated and encouraged to drink 3L of fluids today, and to build fluid intake into his daily routine upon discharge. -VSS- low grade fever again this morning (100.5) treated with Tylenol Functional Status: Reports: pain controlled, tolerating diet, ambulating, urinating - Review of Systems General: Reports: Fever (100.5, resolved with Tylenol) HEENT: Reports: no symptoms Pulmonary: Reports: no symptoms Cardiovascular: Reports: No Symptoms Gastrointestinal: Reports: Diarrhea. Denies: Abdominal pain, Decreased appetite , Nausea, Vomiting Genitourinary: Reports: no symptoms Musculoskeletal: Reports: no symptoms Skin: Reports: other (small area of erythema over left antecubital area) Neurological: Reports: No Symptoms Psychiatric: Reports: no symptoms - Patient Data Vitals - most recent: Last Vital Signs Temp 98.2 F 04/25/17 11:55 Pulse 64 04/25/17 11:55 Resp 12 04/25/17 11:55 BP 161/73 H 04/25/17 11:55 Pulse Ox 98 04/25/17 11:55 Weight - most recent: 169 lb 14.4 oz I&O - last 24 hours: Intake & Output 04/24/17 04/25/17 04/25/17 22:59 06:59 14:59 Intake Total 3215 2452 120 Output Total 850 1350 Balance 2365 1102 120 Lab Results last 24 hrs: Laboratory Results - last 24 hr 04/24/17 04/25/17 04/25/17 Range/Units 18:10 06:17 06:17 WBC 5.44 (4.23-9.07) K/mm3 RBC 3.98 L (4.63-6.08) M/mm3 Hgb 11.3 L (13.7-17.5) gm/L Hct 33.5 L (40.1-51.0) % MCV 84.2 (79.0-92.2) fl MCH 28.4 (25.7-32.2) pg MCHC 33.7 (32.2-35.5) g/dl RDW Std Deviation 39.7 (35.1-43.9) fL Plt Count 186 (163-337) K/mm3 MPV 9.7 (9.4-12.3) fl Neut % (Auto) 76.4 H (34.0-67.9) % Lymph % (Auto) 11.6 L (21.8-53.1) % [place] % (Auto) 7.4 (5.3-12.2) % Eos % (Auto) 4.2 (0.8-7.0) Baso % (Auto) 0.0 L (0.1-1.2) % Neut # (Auto) 4.16 (1.78-5.38) K/mm3 Lymph # (Auto) 0.63 L (1.32-3.57) K/mm3 [place] # (Auto) 0.40 (0.30-0.82) K/mm3 Eos # (Auto) 0.23 (0.04-0.54) K/mm3 Baso # (Auto) 0.00 L (0.01-0.08) K/mm3 Sodium 140 (136-145) mEq/L Potassium 3.8 (3.5-5.1) mEq/L Chloride 108 H (98-107) mEq/L Carbon Dioxide 17 L (21-32) mEq/L Anion Gap 18.8 H (5-15) BUN 24 H (7-18) mg/dL Creatinine 1.9 H (0.7-1.3) mg/dL Est Cr Clr Drug Dosing 47.10 mL/min Estimated GFR (MDRD) 40 (>60) mL/min BUN/Creatinine Ratio 12.6 L (14-18) Glucose 111 H (74-106) mg/dL Calcium 8.5 (8.5-10.1) mg/dL Phosphorus 2.5 L (2.6-4.7) mg/dL Magnesium 1.7 L 1.5 L (1.8-2.4) mg/dl C-Reactive Protein (<1.0) mg/dL Urine Color (Yellow) Urine Appearance (Clear) Urine pH (5.0-8.0) Ur Specific [place] (1.005-1.030) Urine Protein (Negative) Urine Glucose (UA) (Negative) Urine Ketones (Negative) Urine Occult Blood (Negative) Urine Nitrite (Negative) Urine Bilirubin (Negative) Urine Urobilinogen (0.2-1.0) Ur Leukocyte Esterase (Negative) Urine RBC (0-5) /hpf Urine WBC (0-5) /hpf Ur Epithelial Cells (0-5) /hpf Urine Bacteria (FEW) /hpf Urine Mucus (FEW) /hpf 04/25/17 04/25/17 Range/Units 06:17 11:40 WBC (4.23-9.07) K/mm3 RBC (4.63-6.08) M/mm3 Hgb (13.7-17.5) gm/L Hct (40.1-51.0) % MCV (79.0-92.2) fl MCH (25.7-32.2) pg MCHC (32.2-35.5) g/dl RDW Std Deviation (35.1-43.9) fL Plt Count (163-337) K/mm3 MPV (9.4-12.3) fl Neut % (Auto) (34.0-67.9) % Lymph % (Auto) (21.8-53.1) % [place] % (Auto) (5.3-12.2) % Eos % (Auto) (0.8-7.0) Baso % (Auto) (0.1-1.2) % Neut # (Auto) (1.78-5.38) K/mm3 Lymph # (Auto) (1.32-3.57) K/mm3 [place] # (Auto) (0.30-0.82) K/mm3 Eos # (Auto) (0.04-0.54) K/mm3 Baso # (Auto) (0.01-0.08) K/mm3 Sodium (136-145) mEq/L Potassium (3.5-5.1) mEq/L Chloride (98-107) mEq/L Carbon Dioxide (21-32) mEq/L Anion Gap (5-15) BUN (7-18) mg/dL Creatinine (0.7-1.3) mg/dL Est Cr Clr Drug Dosing mL/min Estimated GFR (MDRD) (>60) mL/min BUN/Creatinine Ratio (14-18) Glucose (74-106) mg/dL Calcium (8.5-10.1) mg/dL Phosphorus (2.6-4.7) mg/dL Magnesium (1.8-2.4) mg/dl C-Reactive Protein 11.3 H* (<1.0) mg/dL Urine Color Light yellow (Yellow) Urine Appearance Clear (Clear) Urine pH 6.0 (5.0-8.0) Ur Specific [place] 1.015 (1.005-1.030) Urine Protein Negative (Negative) Urine Glucose (UA) Negative (Negative) Urine Ketones Trace H (Negative) Urine Occult Blood Negative (Negative) Urine Nitrite Negative (Negative) Urine Bilirubin Negative (Negative) Urine Urobilinogen 0.2 (0.2-1.0) Ur Leukocyte Esterase Negative (Negative) Urine RBC Not seen (0-5) /hpf Urine WBC Not seen (0-5) /hpf Ur Epithelial Cells Not seen (0-5) /hpf Urine Bacteria Not seen (FEW) /hpf Urine Mucus Not seen (FEW) /hpf Paulo Results last 24 hrs: Microbiology 04/23/17 23:54 Aerobic Blood Culture - Preliminary Blood - Venous - Lab Draw NO GROWTH AFTER 1 DAY Anaerobic Blood Culture - Preliminary NO GROWTH AFTER 1 DAY 04/23/17 23:36 Aerobic Blood Culture - Preliminary Blood - Venous NO GROWTH AFTER 1 DAY Anaerobic Blood Culture - Preliminary NO GROWTH AFTER 1 DAY Med Orders - Current: Current Medications Acetaminophen (Tylenol) 650 mg PO Q6H PRN PRN Reason: Pain/Fever Last Admin: 04/25/17 09:00 Dose: 650 mg Diphenhydramine HCl (Benadryl) 25 mg IVPUSH Q8H PRN PRN Reason: Itching Famotidine (Pepcid) 20 mg PO DAILY [facility] Last Admin: 04/25/17 08:59 Dose: Not Given Hydromorphone HCl (Dilaudid) 0.5 mg IVPUSH Q4H PRN PRN Reason: Pain (moderate 4-6) Metronidazole 500 mg/ Premix 100 mls @ 100 mls/hr IV Q8H [facility] Last Admin: 04/25/17 08:02 Dose: 100 mls/hr Piperacillin Sod/Tazobactam (Sod 4.5 gm/ Sodium Chloride) 100 mls @ 25 mls/hr IV Q8H [facility] Last Admin: 04/25/17 08:02 Dose: 25 mls/hr Lorazepam (Ativan) 1 mg IVPUSH Q8H PRN PRN Reason: Anxiety Magnesium Oxide (Magnesium Oxide) 400 mg PO BID [facility] Last Admin: 04/25/17 09:00 Dose: 400 mg Metoclopramide HCl (Reglan) 10 mg IVPUSH Q6H PRN PRN Reason: NAUSEA Metoprolol Tartrate (Lopressor) 12.5 mg PO BID [facility] Last Admin: 04/25/17 08:03 Dose: 12.5 mg Ondansetron HCl (Zofran) 4 mg IVPUSH Q8H PRN PRN Reason: Nausea/Vomiting Tacrolimus 1 Mg Cap (*Patient's Own*) 0 each PO DAILY [facility] Last Admin: 04/25/17 08:10 Dose: 2 each Mycophenolate Mofetil 500mg Tabs * Patient's Own* 0 each PO Q12HR [facility] Last Admin: 04/25/17 08:09 Dose: 500 each Tacrolimus 1 Mg Cap (*Patient's Own*) 0 each PO DAILY@1999 [facility] Last Admin: 04/24/17 20:33 Dose: 1 each Sodium Chloride (Saline Flush) 10 ml FLUSH ASDIRECTED PRN PRN Reason: Keep Vein Open Last Admin: 04/23/17 09:54 Dose: 10 ml Temazepam (Restoril) 15 mg PO BEDTIME PRN PRN Reason: Insomnia Discontinued Medications Acetaminophen (Tylenol) 650 mg PO NOW ONE Stop: 04/24/17 08:02 Last Admin: 04/24/17 08:28 Dose: 650 mg Aspirin (Ecotrin) 325 mg PO DAILY [facility] Diatrizoate Meglum/Diatrizoate Sod (Gastrografin 37%) 90 ml PO ONETIME ONE Stop: 04/23/17 12:30 Last Admin: 04/23/17 12:50 Dose: 90 ml Famotidine (Pepcid) 20 mg IVPUSH ONETIME ONE Stop: 04/23/17 09:48 Last Admin: 04/23/17 10:01 Dose: 20 mg Famotidine (Pepcid) 20 mg IVPUSH DAILY [facility] Last Admin: 04/25/17 08:09 Dose: 20 mg Sodium Chloride (Normal Saline) 1,000 mls @ 999 mls/hr IV ONETIME [facility] Last Admin: 04/23/17 10:02 Dose: 999 mls/hr Sodium Chloride (Normal Saline) 1,000 mls @ 999 mls/hr IV ONETIME [facility] Last Admin: 04/23/17 11:25 Dose: 999 mls/hr Lactated Ringer's (Ringers, Lactated) 1,000 mls @ 100 mls/hr IV ASDIRECTED [facility] Piperacillin Sod/Tazobactam (Sod 4.5 gm/ Sodium Chloride) 100 mls @ 200 mls/hr IV ONETIME ONE Stop: 04/23/17 16:44 Last Admin: 04/23/17 16:59 Dose: 200 mls/hr Sodium Chloride (Sodium Chloride 0.45%) 1,000 mls @ 999 mls/hr IV ASDIRECTED [facility] Stop: 04/24/17 00:01 Last Admin: 04/23/17 23:32 Dose: 999 mls/hr Sodium Chloride (Sodium Chloride 0.45%) 1,000 mls @ 150 mls/hr IV ASDIRECTED [facility] Last Admin: 04/25/17 04:23 Dose: 150 mls/hr Magnesium Sulfate 2 gm/ Premix 50 mls @ 25 mls/hr IV ONETIME ONE Stop: 04/24/17 13:59 Last Admin: 04/24/17 13:22 Dose: 25 mls/hr Magnesium Sulfate 2 gm/ Premix 50 mls @ 25 mls/hr IV ONETIME ONE Stop: 04/25/17 10:19 Last Admin: 04/25/17 10:22 Dose: 25 mls/hr Metoclopramide HCl (Reglan) 10 mg IVPUSH Q6H [facility] Last Admin: 04/24/17 09:34 Dose: 10 mg Mycophenolate Mofetil (Cellcept) 500 mg PO Q12HR [facility] Last Admin: 04/23/17 21:34 Dose: 500 mg Ondansetron HCl (Zofran) 4 mg IVPUSH ONETIME ONE Stop: 04/23/17 09:48 Last Admin: 04/23/17 10:00 Dose: 4 mg Tacrolimus (Prograf) 1 mg PO 1999 [facility] Last Admin: 04/23/17 21:33 Dose: 1 mg - Exam Quality Assessment: DVT prophylaxis General: alert, oriented, cooperative, no acute distress HEENT: Pupils equal, Pupils reactive, EOMI, Mucous membr. moist/pink Neck: supple Lungs: Clear to auscultation, Normal respiratory effort Cardiovascular: Regular Rate, Regular Rhythm, No Murmurs Abdomen: bowel sounds present, soft, no tenderness, no distension (Male) Exam: Deferred Back Exam: Normal Inspection Extremities: no edema Peripheral Pulses: 2+: Dorsalis Pedis (L), Dorsalis Pedis (R) Skin: other (erythema to left antecubital space) Neurological: no new focal deficit Psy/Mental Status: alert, normal affect, normal mood - Problem List & Annotations (1) Abdominal pain SNOMED Code(s): 68649150 Code(s): R10.9 - UNSPECIFIED ABDOMINAL PAIN Status: Resolved Priority: Medium Current Visit: Yes Qualifiers: Abdominal location: generalized Qualified Code(s): R10.84 - Generalized abdominal pain (2) Diverticulitis SNOMED Code(s): 208115798 Code(s): K57.92 - DVTRCLI OF INTEST, PART UNSP, W/O PERF OR ABSCESS W/O BLEED Status: Acute Priority: Medium Current Visit: Yes (3) Renal insufficiency SNOMED Code(s): 090586904, 892332682 Code(s): N28.9 - DISORDER OF KIDNEY AND URETER, UNSPECIFIED Status: Acute Priority: High Current Visit: Yes (4) Hypertension SNOMED Code(s): 40063405 Code(s): I10 - ESSENTIAL (PRIMARY) HYPERTENSION Status: Acute Priority: Medium Current Visit: Yes (5) Renal transplant disorder SNOMED Code(s): 692087331 Code(s): T86.10 - UNSPECIFIED COMPLICATION OF KIDNEY TRANSPLANT Status: Acute Priority: High Current Visit: Yes - Problem List Review Problem List Initiated/Reviewed/Updated: Yes - Plan Plan:: Impression: -S/P renal transplant on immune suppressants without follow up -CKD III--->Acute renal failure secondary to dehydration with creatinine of 3.1- -improved creat 1.9 today -Encourage PO fluids -Hypomagnesmia--1.5 today -replace with 400mg PO BID -Abdominal pain with diverticulitis; failed outpatient ATBs for diverticulitis- improved, pain free -continue IV antibiotics Chronic HTN Hyperlipidemia History of diverticulosis Plan: ATBs Pain mgt Renal transplant follow up with [employer] senior officer of choice DVT/GI prophylaxis SW PT/OT <Milly Shannon - Last Filed: 04/26/17 12:07> - Patient Data Vitals - most recent: Last Vital Signs Temp 98.4 F 04/26/17 11:54 Pulse 54 L 04/26/17 11:54 Resp 20 04/26/17 11:54 BP 141/88 H 04/26/17 11:54 Pulse Ox 97 04/26/17 11:54 I&O - last 24 hours: Intake & Output 04/25/17 04/26/17 04/26/17 22:59 06:59 14:59 Intake Total 4150 1400 30 Output Total 1900 1500 Balance 2250 -100 30 Lab Results last 24 hrs: Laboratory Results - last 24 hr 04/26/17 04/26/17 04/26/17 Range/Units 06:09 06:09 06:09 WBC 5.69 (4.23-9.07) K/mm3 RBC 4.03 L (4.63-6.08) M/mm3 Hgb 11.3 L (13.7-17.5) gm/L Hct 33.5 L (40.1-51.0) % MCV 83.1 (79.0-92.2) fl MCH 28.0 (25.7-32.2) pg MCHC 33.7 (32.2-35.5) g/dl RDW Std Deviation 39.2 (35.1-43.9) fL Plt Count 200 (163-337) K/mm3 MPV 9.4 (9.4-12.3) fl Neut % (Auto) 73.4 H (34.0-67.9) % Lymph % (Auto) 11.4 L (21.8-53.1) % [place] % (Auto) 8.6 (5.3-12.2) % Eos % (Auto) 6.2 (0.8-7.0) Baso % (Auto) 0.0 L (0.1-1.2) % Neut # (Auto) 4.18 (1.78-5.38) K/mm3 Lymph # (Auto) 0.65 L (1.32-3.57) K/mm3 [place] # (Auto) 0.49 (0.30-0.82) K/mm3 Eos # (Auto) 0.35 (0.04-0.54) K/mm3 Baso # (Auto) 0.00 L (0.01-0.08) K/mm3 Sodium 139 (136-145) mEq/L Potassium 3.9 (3.5-5.1) mEq/L Chloride 106 (98-107) mEq/L Carbon Dioxide 19 L (21-32) mEq/L Anion Gap 17.9 H (5-15) BUN 21 H (7-18) mg/dL Creatinine 1.8 H (0.7-1.3) mg/dL Est Cr Clr Drug Dosing 49.72 mL/min Estimated GFR (MDRD) 42 (>60) mL/min BUN/Creatinine Ratio 11.7 L (14-18) Glucose 113 H (74-106) mg/dL Calcium 8.7 (8.5-10.1) mg/dL Phosphorus 2.5 L (2.6-4.7) mg/dL Magnesium 1.5 L (1.8-2.4) mg/dl C-Reactive Protein 5.9 H* (<1.0) mg/dL Paulo Results last 24 hrs: Microbiology 04/23/17 23:54 Aerobic Blood Culture - Preliminary Blood - Venous - Lab Draw NO GROWTH AFTER 2 DAYS Anaerobic Blood Culture - Preliminary NO GROWTH AFTER 2 DAYS 04/23/17 23:36 Aerobic Blood Culture - Preliminary Blood - Venous NO GROWTH AFTER 2 DAYS Anaerobic Blood Culture - Preliminary NO GROWTH AFTER 2 DAYS Med Orders - Current: Current Medications Acetaminophen (Tylenol) 650 mg PO Q6H PRN PRN Reason: Pain/Fever Last Admin: 04/25/17 09:00 Dose: 650 mg Clindamycin HCl (Cleocin) 300 mg PO Q6H [facility] Last Admin: 04/26/17 11:59 Dose: 300 mg Diphenhydramine HCl (Benadryl) 25 mg IVPUSH Q8H PRN PRN Reason: Itching Famotidine (Pepcid) 20 mg PO DAILY [facility] Last Admin: 04/26/17 10:03 Dose: 20 mg Hydromorphone HCl (Dilaudid) 0.5 mg IVPUSH Q4H PRN PRN Reason: Pain (moderate 4-6) Lorazepam (Ativan) 1 mg IVPUSH Q8H PRN PRN Reason: Anxiety Magnesium Oxide (Magnesium Oxide) 400 mg PO BID [facility] Last Admin: 04/26/17 10:03 Dose: 400 mg Metoclopramide HCl (Reglan) 10 mg IVPUSH Q6H PRN PRN Reason: NAUSEA Metoprolol Tartrate (Lopressor) 12.5 mg PO BID [facility] Last Admin: 04/26/17 10:07 Dose: 12.5 mg Ondansetron HCl (Zofran) 4 mg IVPUSH Q8H PRN PRN Reason: Nausea/Vomiting Tacrolimus 1 Mg Cap (*Patient's Own*) 0 each PO DAILY [facility] Last Admin: 04/26/17 10:04 Dose: 2 each Mycophenolate Mofetil 500mg Tabs * Patient's Own* 0 each PO Q12HR [facility] Last Admin: 04/26/17 10:04 Dose: 1 each Tacrolimus 1 Mg Cap (*Patient's Own*) 0 each PO DAILY@1999 [facility] Last Admin: 04/25/17 20:10 Dose: 1 each Sodium Chloride (Saline Flush) 10 ml FLUSH ASDIRECTED PRN PRN Reason: Keep Vein Open Last Admin: 04/23/17 09:54 Dose: 10 ml Temazepam (Restoril) 15 mg PO BEDTIME PRN PRN Reason: Insomnia Discontinued Medications Acetaminophen (Tylenol) 650 mg PO NOW ONE Stop: 04/24/17 08:02 Last Admin: 04/24/17 08:28 Dose: 650 mg Aspirin (Ecotrin) 325 mg PO DAILY [facility] Diatrizoate Meglum/Diatrizoate Sod (Gastrografin 37%) 90 ml PO ONETIME ONE Stop: 04/23/17 12:30 Last Admin: 04/23/17 12:50 Dose: 90 ml Famotidine (Pepcid) 20 mg IVPUSH ONETIME ONE Stop: 04/23/17 09:48 Last Admin: 04/23/17 10:01 Dose: 20 mg Famotidine (Pepcid) 20 mg IVPUSH DAILY [facility] Last Admin: 04/25/17 08:09 Dose: 20 mg Sodium Chloride (Normal Saline) 1,000 mls @ 999 mls/hr IV ONETIME [facility] Last Admin: 04/23/17 10:02 Dose: 999 mls/hr Sodium Chloride (Normal Saline) 1,000 mls @ 999 mls/hr IV ONETIME [facility] Last Admin: 04/23/17 11:25 Dose: 999 mls/hr Lactated Ringer's (Ringers, Lactated) 1,000 mls @ 100 mls/hr IV ASDIRECTED [facility] Piperacillin Sod/Tazobactam (Sod 4.5 gm/ Sodium Chloride) 100 mls @ 200 mls/hr IV ONETIME ONE Stop: 04/23/17 16:44 Last Admin: 04/23/17 16:59 Dose: 200 mls/hr Metronidazole 500 mg/ Premix 100 mls @ 100 mls/hr IV Q8H [facility] Stop: 04/26/17 16:01 Last Admin: 04/26/17 10:02 Dose: 100 mls/hr Piperacillin Sod/Tazobactam (Sod 4.5 gm/ Sodium Chloride) 100 mls @ 25 mls/hr IV Q8H [facility] Stop: 04/26/17 16:01 Last Admin: 04/26/17 10:02 Dose: 25 mls/hr Sodium Chloride (Sodium Chloride 0.45%) 1,000 mls @ 999 mls/hr IV ASDIRECTED [facility] Stop: 04/24/17 00:01 Last Admin: 04/23/17 23:32 Dose: 999 mls/hr Sodium Chloride (Sodium Chloride 0.45%) 1,000 mls @ 150 mls/hr IV ASDIRECTED [facility] Last Admin: 04/25/17 04:23 Dose: 150 mls/hr Magnesium Sulfate 2 gm/ Premix 50 mls @ 25 mls/hr IV ONETIME ONE Stop: 04/24/17 13:59 Last Admin: 04/24/17 13:22 Dose: 25 mls/hr Magnesium Sulfate 2 gm/ Premix 50 mls @ 25 mls/hr IV ONETIME ONE Stop: 04/25/17 10:19 Last Admin: 04/25/17 10:22 Dose: 25 mls/hr Metronidazole (Flagyl 500 Mg In Ns 100 Ml) Confirm Administered Dose 100 mls @ as directed .ROUTE .STK-MED ONE Stop: 04/25/17 15:37 Last Admin: 04/25/17 16:56 Dose: Not Given Metoclopramide HCl (Reglan) 10 mg IVPUSH Q6H [facility] Last Admin: 04/24/17 09:34 Dose: 10 mg Mycophenolate Mofetil (Cellcept) 500 mg PO Q12HR [facility] Last Admin: 04/23/17 21:34 Dose: 500 mg Ondansetron HCl (Zofran) 4 mg IVPUSH ONETIME ONE Stop: 04/23/17 09:48 Last Admin: 04/23/17 10:00 Dose: 4 mg Tacrolimus (Prograf) 1 mg PO 2000 [facility] Last Admin: 04/23/17 21:33 Dose: 1 mg - Problem List & Annotations (1) Diverticulitis SNOMED Code(s): 325025702 Code(s): K57.92 - DVTRCLI OF INTEST, PART UNSP, W/O PERF OR ABSCESS W/O BLEED Status: Acute Priority: High Current Visit: Yes (2) Drug-induced skin rash SNOMED Code(s): 81943957 Code(s): L27.0 - GEN SKIN ERUPTION DUE TO DRUGS AND MEDS TAKEN INTERNALLY Status: Acute Priority: High Current Visit: Yes (3) Hyperlipidemia SNOMED Code(s): 30522115 Code(s): E78.5 - HYPERLIPIDEMIA, UNSPECIFIED Status: Chronic Priority: Medium Current Visit: No Qualifiers: Hyperlipidemia type: unspecified Qualified Code(s): E78.5 - Hyperlipidemia , unspecified (4) Hypertension SNOMED Code(s): 64436635 Code(s): I10 - ESSENTIAL (PRIMARY) HYPERTENSION Status: Chronic Priority : Medium Current Visit: Yes (5) Renal insufficiency SNOMED Code(s): 569513250, 974174179 Code(s): N28.9 - DISORDER OF KIDNEY AND URETER, UNSPECIFIED Status: Chronic Priority: High Current Visit: Yes (6) Renal transplant disorder SNOMED Code(s): 530039264 Code(s): T86.10 - UNSPECIFIED COMPLICATION OF KIDNEY TRANSPLANT Status: Acute Priority: High Current Visit: Yes (7) Abdominal pain SNOMED Code(s): 53867391 Code(s): R10.9 - UNSPECIFIED ABDOMINAL PAIN Status: Resolved Priority: Medium Current Visit: Yes Qualifiers: Abdominal location: generalized Qualified Code(s): R10.84 - Generalized abdominal pain - My Orders Last 24 Hours: My Active Orders 04/27/17 08:15 C-REACTIVE PROTEIN [CHEM] DAILY - Plan Plan:: Agree with POC as outlined above; discussed case with student; Ashlee Khan NP - student
[2017-04-25] MEDS ORDERED: metroNIDAZOLE/Normal Saline 100 ML ONE (15:36)
[2017-04-26] MEDS: Piperacillin/Tazobactam 4.5 GM in Sodium Chloride 0.9% 100 ML IV SCH ×3 (10:02)
[2017-04-26] MEDS: metroNIDAZOLE/Normal Saline 500 MG in Premix Bag 1 BAG IV SCH ×3 (10:02)
[2017-04-26] MEDS: Famotidine 20 MG Tab PO SCH (10:03)
[2017-04-26] MEDS: Magnesium Oxide 400 MG Tab PO SCH ×2 (10:03→21:46)
[2017-04-26] MEDS: TACROLIMUS 1 MG PO SCH ×2 (10:04→21:45)
[2017-04-26] MEDS: MYCOPHENOLATE MOFETIL 500 MG PO SCH ×2 (10:04→21:46)
[2017-04-26] MEDS: Metoprolol Tartrate 25 MG Tab PO SCH ×2 (10:07→21:46)
--- NOTE | 2017-04-26 11:18 | PCM.PN ---
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 Had OP treatment of diverticulitis with Flagyl and Cipro. Did not have abdominal radiographic studies when seen in the clinic. Has no primary MD or healthcare provider on a regular basis. Received his kidney from his spouse, ~6 years ago. -Patient is seen on rounds today. He is pain free and has had 2-3 loose stools in last 24 hours. Renal function continues to improve. Patient reports he doesn't take in adequate oral fluids regularly, patient did increase oral intake of fluids yesterday without difficulty. VSS Functional Status: Reports: pain controlled, tolerating diet, ambulating, urinating - Review of Systems General: Reports: No Symptoms. Denies: Fever, Weakness HEENT: Reports: no symptoms Pulmonary: Reports: no symptoms Cardiovascular: Reports: No Symptoms Gastrointestinal: Reports: Diarrhea. Denies: Abdominal pain, Decreased appetite , Hematochezia, Nausea, Vomiting Genitourinary: Reports: no symptoms Musculoskeletal: Reports: no symptoms Skin: Reports: rash (petechial rash ), other. Denies: diaphoresis, pruritis Neurological: Reports: No Symptoms Psychiatric: Reports: no symptoms - Patient Data Vitals - most recent: Last Vital Signs Temp 97.9 F 04/26/17 10:06 Pulse 68 04/26/17 10:07 Resp 16 04/26/17 10:06 BP 123/69 04/26/17 10:07 Pulse Ox 100 04/26/17 10:06 Weight - most recent: 169 lb 14.4 oz I&O - last 24 hours: Intake & Output 04/25/17 04/26/17 04/26/17 22:59 06:59 14:59 Intake Total 4150 1400 30 Output Total 1900 1500 Balance 2250 -100 30 Lab Results last 24 hrs: Laboratory Results - last 24 hr 04/25/17 04/26/17 04/26/17 Range/Units 11:40 06:09 06:09 WBC 5.69 (4.23-9.07) K/mm3 RBC 4.03 L (4.63-6.08) M/mm3 Hgb 11.3 L (13.7-17.5) gm/L Hct 33.5 L (40.1-51.0) % MCV 83.1 (79.0-92.2) fl MCH 28.0 (25.7-32.2) pg MCHC 33.7 (32.2-35.5) g/dl RDW Std Deviation 39.2 (35.1-43.9) fL Plt Count 200 (163-337) K/mm3 MPV 9.4 (9.4-12.3) fl Neut % (Auto) 73.4 H (34.0-67.9) % Lymph % (Auto) 11.4 L (21.8-53.1) % [place] % (Auto) 8.6 (5.3-12.2) % Eos % (Auto) 6.2 (0.8-7.0) Baso % (Auto) 0.0 L (0.1-1.2) % Neut # (Auto) 4.18 (1.78-5.38) K/mm3 Lymph # (Auto) 0.65 L (1.32-3.57) K/mm3 [place] # (Auto) 0.49 (0.30-0.82) K/mm3 Eos # (Auto) 0.35 (0.04-0.54) K/mm3 Baso # (Auto) 0.00 L (0.01-0.08) K/mm3 Sodium 139 (136-145) mEq/L Potassium 3.9 (3.5-5.1) mEq/L Chloride 106 (98-107) mEq/L Carbon Dioxide 19 L (21-32) mEq/L Anion Gap 17.9 H (5-15) BUN 21 H (7-18) mg/dL Creatinine 1.8 H (0.7-1.3) mg/dL Est Cr Clr Drug Dosing 49.72 mL/min Estimated GFR (MDRD) 42 (>60) mL/min BUN/Creatinine Ratio 11.7 L (14-18) Glucose 113 H (74-106) mg/dL Calcium 8.7 (8.5-10.1) mg/dL Phosphorus 2.5 L (2.6-4.7) mg/dL Magnesium 1.5 L (1.8-2.4) mg/dl C-Reactive Protein (<1.0) mg/dL Urine Color Light yellow (Yellow) Urine Appearance Clear (Clear) Urine pH 6.0 (5.0-8.0) Ur Specific [place] 1.015 (1.005-1.030) Urine Protein Negative (Negative) Urine Glucose (UA) Negative (Negative) Urine Ketones Trace H (Negative) Urine Occult Blood Negative (Negative) Urine Nitrite Negative (Negative) Urine Bilirubin Negative (Negative) Urine Urobilinogen 0.2 (0.2-1.0) Ur Leukocyte Esterase Negative (Negative) Urine RBC Not seen (0-5) /hpf Urine WBC Not seen (0-5) /hpf Ur Epithelial Cells Not seen (0-5) /hpf Urine Bacteria Not seen (FEW) /hpf Urine Mucus Not seen (FEW) /hpf 04/26/17 Range/Units 06:09 WBC (4.23-9.07) K/mm3 RBC (4.63-6.08) M/mm3 Hgb (13.7-17.5) gm/L Hct (40.1-51.0) % MCV (79.0-92.2) fl MCH (25.7-32.2) pg MCHC (32.2-35.5) g/dl RDW Std Deviation (35.1-43.9) fL Plt Count (163-337) K/mm3 MPV (9.4-12.3) fl Neut % (Auto) (34.0-67.9) % Lymph % (Auto) (21.8-53.1) % [place] % (Auto) (5.3-12.2) % Eos % (Auto) (0.8-7.0) Baso % (Auto) (0.1-1.2) % Neut # (Auto) (1.78-5.38) K/mm3 Lymph # (Auto) (1.32-3.57) K/mm3 [place] # (Auto) (0.30-0.82) K/mm3 Eos # (Auto) (0.04-0.54) K/mm3 Baso # (Auto) (0.01-0.08) K/mm3 Sodium (136-145) mEq/L Potassium (3.5-5.1) mEq/L Chloride (98-107) mEq/L Carbon Dioxide (21-32) mEq/L Anion Gap (5-15) BUN (7-18) mg/dL Creatinine (0.7-1.3) mg/dL Est Cr Clr Drug Dosing mL/min Estimated GFR (MDRD) (>60) mL/min BUN/Creatinine Ratio (14-18) Glucose (74-106) mg/dL Calcium (8.5-10.1) mg/dL Phosphorus (2.6-4.7) mg/dL Magnesium (1.8-2.4) mg/dl C-Reactive Protein 5.9 H* (<1.0) mg/dL Urine Color (Yellow) Urine Appearance (Clear) Urine pH (5.0-8.0) Ur Specific [place] (1.005-1.030) Urine Protein (Negative) Urine Glucose (UA) (Negative) Urine Ketones (Negative) Urine Occult Blood (Negative) Urine Nitrite (Negative) Urine Bilirubin (Negative) Urine Urobilinogen (0.2-1.0) Ur Leukocyte Esterase (Negative) Urine RBC (0-5) /hpf Urine WBC (0-5) /hpf Ur Epithelial Cells (0-5) /hpf Urine Bacteria (FEW) /hpf Urine Mucus (FEW) /hpf Paulo Results last 24 hrs: Microbiology 04/23/17 23:54 Aerobic Blood Culture - Preliminary Blood - Venous - Lab Draw NO GROWTH AFTER 2 DAYS Anaerobic Blood Culture - Preliminary NO GROWTH AFTER 2 DAYS 04/23/17 23:36 Aerobic Blood Culture - Preliminary Blood - Venous NO GROWTH AFTER 2 DAYS Anaerobic Blood Culture - Preliminary NO GROWTH AFTER 2 DAYS Med Orders - Current: Current Medications Acetaminophen (Tylenol) 650 mg PO Q6H PRN PRN Reason: Pain/Fever Last Admin: 04/25/17 09:00 Dose: 650 mg Diphenhydramine HCl (Benadryl) 25 mg IVPUSH Q8H PRN PRN Reason: Itching Famotidine (Pepcid) 20 mg PO DAILY [facility] Last Admin: 04/26/17 10:03 Dose: 20 mg Hydromorphone HCl (Dilaudid) 0.5 mg IVPUSH Q4H PRN PRN Reason: Pain (moderate 4-6) Metronidazole 500 mg/ Premix 100 mls @ 100 mls/hr IV Q8H [facility] Stop: 04/26/17 16:01 Last Admin: 04/26/17 10:02 Dose: 100 mls/hr Piperacillin Sod/Tazobactam (Sod 4.5 gm/ Sodium Chloride) 100 mls @ 25 mls/hr IV Q8H [facility] Stop: 04/26/17 16:01 Last Admin: 04/26/17 10:02 Dose: 25 mls/hr Lorazepam (Ativan) 1 mg IVPUSH Q8H PRN PRN Reason: Anxiety Magnesium Oxide (Magnesium Oxide) 400 mg PO BID [facility] Last Admin: 04/26/17 10:03 Dose: 400 mg Metoclopramide HCl (Reglan) 10 mg IVPUSH Q6H PRN PRN Reason: NAUSEA Metoprolol Tartrate (Lopressor) 12.5 mg PO BID [facility] Last Admin: 04/26/17 10:07 Dose: 12.5 mg Ondansetron HCl (Zofran) 4 mg IVPUSH Q8H PRN PRN Reason: Nausea/Vomiting Tacrolimus 1 Mg Cap (*Patient's Own*) 0 each PO DAILY [facility] Last Admin: 04/26/17 10:04 Dose: 2 each Mycophenolate Mofetil 500mg Tabs * Patient's Own* 0 each PO Q12HR [facility] Last Admin: 04/26/17 10:04 Dose: 1 each Tacrolimus 1 Mg Cap (*Patient's Own*) 0 each PO DAILY@1999 [facility] Last Admin: 04/25/17 20:10 Dose: 1 each Sodium Chloride (Saline Flush) 10 ml FLUSH ASDIRECTED PRN PRN Reason: Keep Vein Open Last Admin: 04/23/17 09:54 Dose: 10 ml Temazepam (Restoril) 15 mg PO BEDTIME PRN PRN Reason: Insomnia Discontinued Medications Acetaminophen (Tylenol) 650 mg PO NOW ONE Stop: 04/24/17 08:02 Last Admin: 04/24/17 08:28 Dose: 650 mg Aspirin (Ecotrin) 325 mg PO DAILY [facility] Diatrizoate Meglum/Diatrizoate Sod (Gastrografin 37%) 90 ml PO ONETIME ONE Stop: 04/23/17 12:30 Last Admin: 04/23/17 12:50 Dose: 90 ml Famotidine (Pepcid) 20 mg IVPUSH ONETIME ONE Stop: 04/23/17 09:48 Last Admin: 04/23/17 10:01 Dose: 20 mg Famotidine (Pepcid) 20 mg IVPUSH DAILY [facility] Last Admin: 04/25/17 08:09 Dose: 20 mg Sodium Chloride (Normal Saline) 1,000 mls @ 999 mls/hr IV ONETIME [facility] Last Admin: 04/23/17 10:02 Dose: 999 mls/hr Sodium Chloride (Normal Saline) 1,000 mls @ 999 mls/hr IV ONETIME [facility] Last Admin: 04/23/17 11:25 Dose: 999 mls/hr Lactated Ringer's (Ringers, Lactated) 1,000 mls @ 100 mls/hr IV ASDIRECTED [facility] Piperacillin Sod/Tazobactam (Sod 4.5 gm/ Sodium Chloride) 100 mls @ 200 mls/hr IV ONETIME ONE Stop: 04/23/17 16:44 Last Admin: 04/23/17 16:59 Dose: 200 mls/hr Sodium Chloride (Sodium Chloride 0.45%) 1,000 mls @ 999 mls/hr IV ASDIRECTED [facility] Stop: 04/24/17 00:01 Last Admin: 04/23/17 23:32 Dose: 999 mls/hr Sodium Chloride (Sodium Chloride 0.45%) 1,000 mls @ 150 mls/hr IV ASDIRECTED [facility] Last Admin: 04/25/17 04:23 Dose: 150 mls/hr Magnesium Sulfate 2 gm/ Premix 50 mls @ 25 mls/hr IV ONETIME ONE Stop: 04/24/17 13:59 Last Admin: 04/24/17 13:22 Dose: 25 mls/hr Magnesium Sulfate 2 gm/ Premix 50 mls @ 25 mls/hr IV ONETIME ONE Stop: 04/25/17 10:19 Last Admin: 04/25/17 10:22 Dose: 25 mls/hr Metronidazole (Flagyl 500 Mg In Ns 100 Ml) Confirm Administered Dose 100 mls @ as directed .ROUTE .STK-MED ONE Stop: 04/25/17 15:37 Last Admin: 04/25/17 16:56 Dose: Not Given Metoclopramide HCl (Reglan) 10 mg IVPUSH Q6H [facility] Last Admin: 04/24/17 09:34 Dose: 10 mg Mycophenolate Mofetil (Cellcept) 500 mg PO Q12HR [facility] Last Admin: 04/23/17 21:34 Dose: 500 mg Ondansetron HCl (Zofran) 4 mg IVPUSH ONETIME ONE Stop: 04/23/17 09:48 Last Admin: 04/23/17 10:00 Dose: 4 mg Tacrolimus (Prograf) 1 mg PO 2000 [facility] Last Admin: 04/23/17 21:33 Dose: 1 mg - Exam Quality Assessment: DVT prophylaxis General: alert, oriented, cooperative, no acute distress HEENT: Pupils equal, Pupils reactive, EOMI, Mucous membr. moist/pink Neck: supple Lungs: Clear to auscultation, Normal respiratory effort Cardiovascular: Regular Rate, Regular Rhythm, No Murmurs Abdomen: bowel sounds present, soft, no tenderness, no distension (Male) Exam: Deferred Back Exam: Normal Inspection Extremities: no edema Skin: rash (petechial noted to bilat AC, left posterior shoulder, bilat medial thighs/knees; nonpuruitic, blanching) Neurological: no new focal deficit Psy/Mental Status: alert, normal affect, normal mood - Problem List & Annotations (1) Abdominal pain SNOMED Code(s): 57122136 Code(s): R10.9 - UNSPECIFIED ABDOMINAL PAIN Status: Resolved Priority: Medium Current Visit: Yes Qualifiers: Abdominal location: generalized Qualified Code(s): R10.84 - Generalized abdominal pain (2) Diverticulitis SNOMED Code(s): 548706133 Code(s): K57.92 - DVTRCLI OF INTEST, PART UNSP, W/O PERF OR ABSCESS W/O BLEED Status: Acute Priority: Medium Current Visit: Yes (3) Renal insufficiency SNOMED Code(s): 886489091, 479704689 Code(s): N28.9 - DISORDER OF KIDNEY AND URETER, UNSPECIFIED Status: Acute Priority: High Current Visit: Yes (4) Hypertension SNOMED Code(s): 12319833 Code(s): I10 - ESSENTIAL (PRIMARY) HYPERTENSION Status: Acute Priority: Medium Current Visit: Yes (5) Renal transplant disorder SNOMED Code(s): 904542266 Code(s): T86.10 - UNSPECIFIED COMPLICATION OF KIDNEY TRANSPLANT Status: Acute Priority: High Current Visit: Yes - Plan Plan:: Impression: -S/P renal transplant on immune suppressants without follow up -CKD III--->Acute renal failure secondary to dehydration with creatinine of 3.1- -improved creat 1.8 today -Encourage PO fluids -Hypomagnesmia--1.5 today -replace with 400mg PO BID -Abdominal pain with diverticulitis; failed outpatient ATBs for diverticulitis- improved, pain free -petechial rash suggestive of drug eruption. D/c zosyn/flagyl; clindamycin 300mg PO QID. Chronic HTN Hyperlipidemia History of diverticulosis Plan: Plan to discharge in AM ATBs Renal transplant follow up with master motorcycle technician of choice DVT/GI prophylaxis SW PT/OT <Milly Shannon - Last Filed: 04/26/17 12:06> - Patient Data Vitals - most recent: Last Vital Signs Temp 98.4 F 04/26/17 11:54 Pulse 54 L 04/26/17 11:54 Resp 20 04/26/17 11:54 BP 141/88 H 04/26/17 11:54 Pulse Ox 97 04/26/17 11:54 I&O - last 24 hours: Intake & Output 04/25/17 04/26/17 04/26/17 22:59 06:59 14:59 Intake Total 4150 1400 30 Output Total 1900 1500 Balance 2250 -100 30 Lab Results last 24 hrs: Laboratory Results - last 24 hr 04/25/17 04/26/17 04/26/17 Range/Units 11:40 06:09 06:09 WBC 5.69 (4.23-9.07) K/mm3 RBC 4.03 L (4.63-6.08) M/mm3 Hgb 11.3 L (13.7-17.5) gm/L Hct 33.5 L (40.1-51.0) % MCV 83.1 (79.0-92.2) fl MCH 28.0 (25.7-32.2) pg MCHC 33.7 (32.2-35.5) g/dl RDW Std Deviation 39.2 (35.1-43.9) fL Plt Count 200 (163-337) K/mm3 MPV 9.4 (9.4-12.3) fl Neut % (Auto) 73.4 H (34.0-67.9) % Lymph % (Auto) 11.4 L (21.8-53.1) % [place] % (Auto) 8.6 (5.3-12.2) % Eos % (Auto) 6.2 (0.8-7.0) Baso % (Auto) 0.0 L (0.1-1.2) % Neut # (Auto) 4.18 (1.78-5.38) K/mm3 Lymph # (Auto) 0.65 L (1.32-3.57) K/mm3 [place] # (Auto) 0.49 (0.30-0.82) K/mm3 Eos # (Auto) 0.35 (0.04-0.54) K/mm3 Baso # (Auto) 0.00 L (0.01-0.08) K/mm3 Sodium 139 (136-145) mEq/L Potassium 3.9 (3.5-5.1) mEq/L Chloride 106 (98-107) mEq/L Carbon Dioxide 19 L (21-32) mEq/L Anion Gap 17.9 H (5-15) BUN 21 H (7-18) mg/dL Creatinine 1.8 H (0.7-1.3) mg/dL Est Cr Clr Drug Dosing 49.72 mL/min Estimated GFR (MDRD) 42 (>60) mL/min BUN/Creatinine Ratio 11.7 L (14-18) Glucose 113 H (74-106) mg/dL Calcium 8.7 (8.5-10.1) mg/dL Phosphorus 2.5 L (2.6-4.7) mg/dL Magnesium 1.5 L (1.8-2.4) mg/dl C-Reactive Protein (<1.0) mg/dL Urine Color Light yellow (Yellow) Urine Appearance Clear (Clear) Urine pH 6.0 (5.0-8.0) Ur Specific [place] 1.015 (1.005-1.030) Urine Protein Negative (Negative) Urine Glucose (UA) Negative (Negative) Urine Ketones Trace H (Negative) Urine Occult Blood Negative (Negative) Urine Nitrite Negative (Negative) Urine Bilirubin Negative (Negative) Urine Urobilinogen 0.2 (0.2-1.0) Ur Leukocyte Esterase Negative (Negative) Urine RBC Not seen (0-5) /hpf Urine WBC Not seen (0-5) /hpf Ur Epithelial Cells Not seen (0-5) /hpf Urine Bacteria Not seen (FEW) /hpf Urine Mucus Not seen (FEW) /hpf 04/26/17 Range/Units 06:09 WBC (4.23-9.07) K/mm3 RBC (4.63-6.08) M/mm3 Hgb (13.7-17.5) gm/L Hct (40.1-51.0) % MCV (79.0-92.2) fl MCH (25.7-32.2) pg MCHC (32.2-35.5) g/dl RDW Std Deviation (35.1-43.9) fL Plt Count (163-337) K/mm3 MPV (9.4-12.3) fl Neut % (Auto) (34.0-67.9) % Lymph % (Auto) (21.8-53.1) % [place] % (Auto) (5.3-12.2) % Eos % (Auto) (0.8-7.0) Baso % (Auto) (0.1-1.2) % Neut # (Auto) (1.78-5.38) K/mm3 Lymph # (Auto) (1.32-3.57) K/mm3 [place] # (Auto) (0.30-0.82) K/mm3 Eos # (Auto) (0.04-0.54) K/mm3 Baso # (Auto) (0.01-0.08) K/mm3 Sodium (136-145) mEq/L Potassium (3.5-5.1) mEq/L Chloride (98-107) mEq/L Carbon Dioxide (21-32) mEq/L Anion Gap (5-15) BUN (7-18) mg/dL Creatinine (0.7-1.3) mg/dL Est Cr Clr Drug Dosing mL/min Estimated GFR (MDRD) (>60) mL/min BUN/Creatinine Ratio (14-18) Glucose (74-106) mg/dL Calcium (8.5-10.1) mg/dL Phosphorus (2.6-4.7) mg/dL Magnesium (1.8-2.4) mg/dl C-Reactive Protein 5.9 H* (<1.0) mg/dL Urine Color (Yellow) Urine Appearance (Clear) Urine pH (5.0-8.0) Ur Specific [place] (1.005-1.030) Urine Protein (Negative) Urine Glucose (UA) (Negative) Urine Ketones (Negative) Urine Occult Blood (Negative) Urine Nitrite (Negative) Urine Bilirubin (Negative) Urine Urobilinogen (0.2-1.0) Ur Leukocyte Esterase (Negative) Urine RBC (0-5) /hpf Urine WBC (0-5) /hpf Ur Epithelial Cells (0-5) /hpf Urine Bacteria (FEW) /hpf Urine Mucus (FEW) /hpf Paulo Results last 24 hrs: Microbiology 04/23/17 23:54 Aerobic Blood Culture - Preliminary Blood - Venous - Lab Draw NO GROWTH AFTER 2 DAYS Anaerobic Blood Culture - Preliminary NO GROWTH AFTER 2 DAYS 04/23/17 23:36 Aerobic Blood Culture - Preliminary Blood - Venous NO GROWTH AFTER 2 DAYS Anaerobic Blood Culture - Preliminary NO GROWTH AFTER 2 DAYS Med Orders - Current: Current Medications Acetaminophen (Tylenol) 650 mg PO Q6H PRN PRN Reason: Pain/Fever Last Admin: 04/25/17 09:00 Dose: 650 mg Clindamycin HCl (Cleocin) 300 mg PO Q6H [facility] Last Admin: 04/26/17 11:59 Dose: 300 mg Diphenhydramine HCl (Benadryl) 25 mg IVPUSH Q8H PRN PRN Reason: Itching Famotidine (Pepcid) 20 mg PO DAILY [facility] Last Admin: 04/26/17 10:03 Dose: 20 mg Hydromorphone HCl (Dilaudid) 0.5 mg IVPUSH Q4H PRN PRN Reason: Pain (moderate 4-6) Lorazepam (Ativan) 1 mg IVPUSH Q8H PRN PRN Reason: Anxiety Magnesium Oxide (Magnesium Oxide) 400 mg PO BID [facility] Last Admin: 04/26/17 10:03 Dose: 400 mg Metoclopramide HCl (Reglan) 10 mg IVPUSH Q6H PRN PRN Reason: NAUSEA Metoprolol Tartrate (Lopressor) 12.5 mg PO BID [facility] Last Admin: 04/26/17 10:07 Dose: 12.5 mg Ondansetron HCl (Zofran) 4 mg IVPUSH Q8H PRN PRN Reason: Nausea/Vomiting Tacrolimus 1 Mg Cap (*Patient's Own*) 0 each PO DAILY [facility] Last Admin: 04/26/17 10:04 Dose: 2 each Mycophenolate Mofetil 500mg Tabs * Patient's Own* 0 each PO Q12HR [facility] Last Admin: 04/26/17 10:04 Dose: 1 each Tacrolimus 1 Mg Cap (*Patient's Own*) 0 each PO DAILY@2000 [facility] Last Admin: 04/25/17 20:10 Dose: 1 each Sodium Chloride (Saline Flush) 10 ml FLUSH ASDIRECTED PRN PRN Reason: Keep Vein Open Last Admin: 04/23/17 09:54 Dose: 10 ml Temazepam (Restoril) 15 mg PO BEDTIME PRN PRN Reason: Insomnia Discontinued Medications Acetaminophen (Tylenol) 650 mg PO NOW ONE Stop: 04/24/17 08:02 Last Admin: 04/24/17 08:28 Dose: 650 mg Aspirin (Ecotrin) 325 mg PO DAILY [facility] Diatrizoate Meglum/Diatrizoate Sod (Gastrografin 37%) 90 ml PO ONETIME ONE Stop: 04/23/17 12:30 Last Admin: 04/23/17 12:50 Dose: 90 ml Famotidine (Pepcid) 20 mg IVPUSH ONETIME ONE Stop: 04/23/17 09:48 Last Admin: 04/23/17 10:01 Dose: 20 mg Famotidine (Pepcid) 20 mg IVPUSH DAILY [facility] Last Admin: 04/25/17 08:09 Dose: 20 mg Sodium Chloride (Normal Saline) 1,000 mls @ 999 mls/hr IV ONETIME [facility] Last Admin: 04/23/17 10:02 Dose: 999 mls/hr Sodium Chloride (Normal Saline) 1,000 mls @ 999 mls/hr IV ONETIME [facility] Last Admin: 04/23/17 11:25 Dose: 999 mls/hr Lactated Ringer's (Ringers, Lactated) 1,000 mls @ 100 mls/hr IV ASDIRECTED [facility] Piperacillin Sod/Tazobactam (Sod 4.5 gm/ Sodium Chloride) 100 mls @ 200 mls/hr IV ONETIME ONE Stop: 04/23/17 16:44 Last Admin: 04/23/17 16:59 Dose: 200 mls/hr Metronidazole 500 mg/ Premix 100 mls @ 100 mls/hr IV Q8H [facility] Stop: 04/26/17 16:01 Last Admin: 04/26/17 10:02 Dose: 100 mls/hr Piperacillin Sod/Tazobactam (Sod 4.5 gm/ Sodium Chloride) 100 mls @ 25 mls/hr IV Q8H [facility] Stop: 04/26/17 16:01 Last Admin: 04/26/17 10:02 Dose: 25 mls/hr Sodium Chloride (Sodium Chloride 0.45%) 1,000 mls @ 999 mls/hr IV ASDIRECTED [facility] Stop: 04/24/17 00:01 Last Admin: 04/23/17 23:32 Dose: 999 mls/hr Sodium Chloride (Sodium Chloride 0.45%) 1,000 mls @ 150 mls/hr IV ASDIRECTED [facility] Last Admin: 04/25/17 04:23 Dose: 150 mls/hr Magnesium Sulfate 2 gm/ Premix 50 mls @ 25 mls/hr IV ONETIME ONE Stop: 04/24/17 13:59 Last Admin: 04/24/17 13:22 Dose: 25 mls/hr Magnesium Sulfate 2 gm/ Premix 50 mls @ 25 mls/hr IV ONETIME ONE Stop: 04/25/17 10:19 Last Admin: 04/25/17 10:22 Dose: 25 mls/hr Metronidazole (Flagyl 500 Mg In Ns 100 Ml) Confirm Administered Dose 100 mls @ as directed .ROUTE .STK-MED ONE Stop: 04/25/17 15:37 Last Admin: 04/25/17 16:56 Dose: Not Given Metoclopramide HCl (Reglan) 10 mg IVPUSH Q6H [facility] Last Admin: 04/24/17 09:34 Dose: 10 mg Mycophenolate Mofetil (Cellcept) 500 mg PO Q12HR [facility] Last Admin: 04/23/17 21:34 Dose: 500 mg Ondansetron HCl (Zofran) 4 mg IVPUSH ONETIME ONE Stop: 04/23/17 09:48 Last Admin: 04/23/17 10:00 Dose: 4 mg Tacrolimus (Prograf) 1 mg PO 2000 [facility] Last Admin: 04/23/17 21:33 Dose: 1 mg - Problem List & Annotations (1) Diverticulitis SNOMED Code(s): 132252126 Code(s): K57.92 - DVTRCLI OF INTEST, PART UNSP, W/O PERF OR ABSCESS W/O BLEED Status: Acute Priority: High Current Visit: Yes (2) Drug-induced skin rash SNOMED Code(s): 16250134 Code(s): L27.0 - GEN SKIN ERUPTION DUE TO DRUGS AND MEDS TAKEN INTERNALLY Status: Acute Priority: High Current Visit: Yes (3) Hyperlipidemia SNOMED Code(s): 65660280 Code(s): E78.5 - HYPERLIPIDEMIA, UNSPECIFIED Status: Chronic Priority: Medium Current Visit: No Qualifiers: Hyperlipidemia type: unspecified Qualified Code(s): E78.5 - Hyperlipidemia , unspecified (4) Hypertension SNOMED Code(s): 55847133 Code(s): I10 - ESSENTIAL (PRIMARY) HYPERTENSION Status: Chronic Priority : Medium Current Visit: Yes (5) Renal insufficiency SNOMED Code(s): 564993460, 964440927 Code(s): N28.9 - DISORDER OF KIDNEY AND URETER, UNSPECIFIED Status: Chronic Priority: High Current Visit: Yes (6) Renal transplant disorder SNOMED Code(s): 403044965 Code(s): T86.10 - UNSPECIFIED COMPLICATION OF KIDNEY TRANSPLANT Status: Acute Priority: High Current Visit: Yes (7) Abdominal pain SNOMED Code(s): 79943978 Code(s): R10.9 - UNSPECIFIED ABDOMINAL PAIN Status: Resolved Priority: Medium Current Visit: Yes Qualifiers: Abdominal location: generalized Qualified Code(s): R10.84 - Generalized abdominal pain - Problem List Review Problem List Initiated/Reviewed/Updated: Yes - My Orders Last 24 Hours: My Active Orders 04/27/17 08:15 C-REACTIVE PROTEIN [CHEM] DAILY - Plan Plan:: Agree with above noted POC, reviewed with student, Ashlee Edmondson NP student
[2017-04-26] MEDS: Clindamycin HCl 150 MG Cap PO SCH ×2 (11:59→17:29)
[2017-04-26] MEDS ORDERED: Magnesium Oxide 400 MG Tab PO ONE (19:00)
[2017-04-27] MEDS: Clindamycin HCl 150 MG Cap PO SCH ×2 (00:04→05:53)
[2017-04-27 08:16] VITALS: BP 135/75
[2017-04-27] MEDS: Famotidine 20 MG Tab PO SCH (09:18)
[2017-04-27] MEDS: Magnesium Oxide 400 MG Tab PO SCH (09:18)
[2017-04-27] MEDS: Metoprolol Tartrate 25 MG Tab PO SCH (09:18)
[2017-04-27] MEDS: TACROLIMUS 1 MG PO SCH (09:19)
[2017-04-27] MEDS: MYCOPHENOLATE MOFETIL 500 MG PO SCH (09:19)
--- NOTE | 2017-04-27 09:40 | PCM.DCSUM1 ---
Discharge Summary - Hospital Course Free Text/Narrative:: 37 year old male renal transplant, living donor presented to the ED with abdominal pain. He had been seen earlier and received 2 prescriptions for antibiotics for abdominal pain/diverticulitis. He did not initiate outpatient therapy before presenting to the ED with similar complaints. He received aggressive fluid resuscitation with resolution of his ARF, Cr 3.1 on admission and 1.7 at DC. He received Levoquin and Flagyl and developed a drug rash. The culprit was not identified. He was subsequently started on Clindamycin orally which was well tolerated. He had not seen Dr Wilkins, investigations manager at [facility] greater than 1 year. Had also not had a Prograf level. Immune suppressants had not been assessed.The Prograf level was pending at the time of DC. The patient and his have a [place] tripped scheduled, he will be seeing Dr Ruiz on May 10, 2017; PCP, Dr Trinh is to be arranged. He had several discussions about the importance of close follow up with a transplant organ, it is unknown if he truly understands the urgency to maintain function. Moreover he ratherly drips water, this was heavily emphasized during the hospital stay. Primary Dx Diverticulitis Acute renal failure Dehydration Abdominal pain. Condition Stable Activity As tolerated Instructions Drink at least 1.5-2 liters of water daily, avoid dehydration Prescriptions Clindamycin 300 mg TID MgO 400mg BID Appts Dr Hilliard, 05/10/17 Dr Trinh, TBD - Discharge Data Discharge Date: 04/27/17 Discharge Disposition: Home, Self-Care 01 Condition: Good - Discharge Diagnosis/Problem(s) (1) Renal transplant disorder SNOMED Code(s): 192236139 ICD Code: T86.10 - UNSPECIFIED COMPLICATION OF KIDNEY TRANSPLANT Status: Acute Priority: High (2) Abdominal pain SNOMED Code(s): 34142117 ICD Code: R10.9 - UNSPECIFIED ABDOMINAL PAIN Status: Resolved Priority: Medium Qualifiers: Abdominal location: generalized Qualified Code(s): R10.84 - Generalized abdominal pain (3) Renal insufficiency SNOMED Code(s): 221094124, 159842674 ICD Code: N28.9 - DISORDER OF KIDNEY AND URETER, UNSPECIFIED Status: Chronic Priority: High (4) Hypertension SNOMED Code(s): 33114904 ICD Code: I10 - ESSENTIAL (PRIMARY) HYPERTENSION Status: Chronic Priority : Medium (5) Hyperlipidemia SNOMED Code(s): 13955505 ICD Code: E78.5 - HYPERLIPIDEMIA, UNSPECIFIED Status: Chronic Priority: Medium Qualifiers: Hyperlipidemia type: unspecified Qualified Code(s): E78.5 - Hyperlipidemia , unspecified (6) Diverticulitis SNOMED Code(s): 934430530 ICD Code: K57.92 - DVTRCLI OF INTEST, PART UNSP, W/O PERF OR ABSCESS W/O BLEED Status: Acute Priority: High (7) Drug-induced skin rash SNOMED Code(s): 68096040 ICD Code: L27.0 - GEN SKIN ERUPTION DUE TO DRUGS AND MEDS TAKEN INTERNALLY Status: Acute Priority: High - Patient Summary/Data Consults: Consultations 04/24/17 08:00 Consult to Physical Therapy [PT Evaluation and Treatment] [CONS] Routine Consult to Compressor Station Operator [CONS] Routine 04/24/17 09:00 Consult to Occupational Therapy [OT Evaluation and Treatment] [CONS] Routine - Patient Instructions Diet: Usual Diet as Tolerated, Renal Diet Activity: As Tolerated Driving: May Drive Today Showering/Bathing: May Shower Notify Provider of: Fever, Increased Pain, Swelling and Redness, Nausea and/or Vomiting - Discharge Plan Prescriptions/Med Rec: Clindamycin HCl [Cleocin] 300 mg PO Q8H #15 cap Magnesium Oxide 400 mg PO BID #20 tablet Home Medications: Home Meds Acetaminophen [Tylenol Extra Strength] 2 tab PO Q6HR PRN 04/23/17 [History] Ergocalciferol (Vitamin D2) [Vitamin D2] 2 tab PO DAILY 04/23/17 [History] Metoprolol Tartrate [Lopressor] 12.5 mg PO BID 04/23/17 [History] Mycophenolate Mofetil [Cellcept] 500 mg PO Q12HR 04/23/17 [History] Omeprazole Magnesium [Prilosec Otc] 20 mg PO DAILY PRN 04/23/17 [History] Simvastatin [Zocor] 20 mg PO BEDTIME 04/23/17 [History] Tacrolimus [Prograf] 1 tab PO 2000 04/23/17 [History] Tacrolimus [Prograf] 2 mg PO DAILY 04/23/17 [History] traZODone HCl [Trazodone HCl] 100 mg PO BEDTIME 04/23/17 [History] Clindamycin HCl [Cleocin] 300 mg PO Q8H #15 cap 04/27/17 [Rx] Magnesium Oxide 400 mg PO BID #20 tablet 04/27/17 [Rx] Patient Handouts: Diverticulitis, [id number], Urinary Tract Infection, Adult , [id number], Hypertension, [id number], Chronic Kidney Disease, Managing Your High Blood Pressure Forms: ED Department Discharge Referrals: Bertrand Hilliard MD [Consulting Physician] - 05/10/17 9:40 am (Please follow-up wiht Dr. Hilliard on 05/10/2017 at 0940 at [facility] in [place]. Go to the clinic side. Come 30 minutes prior to appointment and bring ID and insurance information) Andreea Trinh DO [Primary Care Provider] - (Please follow-up with Dr. Andreea Trinh 1 weeks after discharge. Please make appointment on Saturday during office hours.) - Discharge Summary/Plan Comment DC Time >30 min.: No - General Info Date of Service: 04/23/17 Functional Status: Reports: pain controlled, tolerating diet, ambulating, urinating - Review of Systems General: Reports: No Symptoms HEENT: Reports: no symptoms Pulmonary: Reports: no symptoms Cardiovascular: Reports: No Symptoms Gastrointestinal: Reports: No symptoms Genitourinary: Reports: no symptoms Musculoskeletal: Reports: no symptoms Skin: Reports: no symptoms Neurological: Reports: No Symptoms Psychiatric: Reports: no symptoms - Patient Data Vitals - Most Recent: Last Vital Signs Temp 36.8 C 04/27/17 08:14 Pulse 67 04/27/17 09:18 Resp 14 04/27/17 08:14 BP 135/75 04/27/17 09:18 Pulse Ox 96 04/27/17 08:14 Weight - Most Recent: 77.337 kg I&O - Last 24 hours: Intake & Output 04/26/17 04/27/17 04/27/17 22:59 06:59 14:59 Intake Total 1350 800 Balance 1350 800 Lab Results - Last 24 hrs: Laboratory Results - last 24 hr 04/27/17 04/27/17 04/27/17 Range/Units 05:15 05:15 05:15 WBC 6.02 (4.23-9.07) K/mm3 RBC 4.06 L (4.63-6.08) M/mm3 Hgb 11.2 L (13.7-17.5) gm/L Hct 33.8 L (40.1-51.0) % MCV 83.3 (79.0-92.2) fl MCH 27.6 (25.7-32.2) pg MCHC 33.1 (32.2-35.5) g/dl RDW Std Deviation 39.4 (35.1-43.9) fL Plt Count 213 (163-337) K/mm3 MPV 9.6 (9.4-12.3) fl Neut % (Auto) 64.0 (34.0-67.9) % Lymph % (Auto) 18.8 L (21.8-53.1) % Delta % (Auto) 10.3 (5.3-12.2) % Eos % (Auto) 6.0 (0.8-7.0) Baso % (Auto) 0.2 (0.1-1.2) % Neut # (Auto) 3.86 (1.78-5.38) K/mm3 Lymph # (Auto) 1.13 L (1.32-3.57) K/mm3 Delta # (Auto) 0.62 (0.30-0.82) K/mm3 Eos # (Auto) 0.36 (0.04-0.54) K/mm3 Baso # (Auto) 0.01 (0.01-0.08) K/mm3 Sodium 140 (136-145) mEq/L Potassium 3.9 (3.5-5.1) mEq/L Chloride 106 (98-107) mEq/L Carbon Dioxide 22 (21-32) mEq/L Anion Gap 15.9 H (5-15) BUN 25 H (7-18) mg/dL Creatinine 1.7 H (0.7-1.3) mg/dL Est Cr Clr Drug Dosing 52.65 mL/min Estimated GFR (MDRD) 45 (>60) mL/min BUN/Creatinine Ratio 14.7 (14-18) Glucose 105 (74-106) mg/dL Calcium 9.0 (8.5-10.1) mg/dL Phosphorus 3.2 (2.6-4.7) mg/dL Magnesium 1.5 L (1.8-2.4) mg/dl C-Reactive Protein 2.8 H* (<1.0) mg/dL GIORGI Results - Last 24 hrs: Microbiology 04/23/17 23:54 Aerobic Blood Culture - Preliminary Blood - Venous - Lab Draw NO GROWTH AFTER 3 DAYS Anaerobic Blood Culture - Preliminary NO GROWTH AFTER 3 DAYS 04/23/17 23:36 Aerobic Blood Culture - Preliminary Blood - Venous NO GROWTH AFTER 3 DAYS Anaerobic Blood Culture - Preliminary NO GROWTH AFTER 3 DAYS Med Orders - Current: Current Medications Acetaminophen (Tylenol) 650 mg PO Q6H PRN PRN Reason: Pain/Fever Last Admin: 04/25/17 09:00 Dose: 650 mg Clindamycin HCl (Cleocin) 300 mg PO Q6H [facility] Last Admin: 04/27/17 05:53 Dose: 300 mg Diphenhydramine HCl (Benadryl) 25 mg IVPUSH Q8H PRN PRN Reason: Itching Famotidine (Pepcid) 20 mg PO DAILY [facility] Last Admin: 04/27/17 09:18 Dose: 20 mg Hydromorphone HCl (Dilaudid) 0.5 mg IVPUSH Q4H PRN PRN Reason: Pain (moderate 4-6) Lorazepam (Ativan) 1 mg IVPUSH Q8H PRN PRN Reason: Anxiety Magnesium Oxide (Magnesium Oxide) 400 mg PO BID [facility] Last Admin: 04/27/17 09:18 Dose: 400 mg Metoclopramide HCl (Reglan) 10 mg IVPUSH Q6H PRN PRN Reason: NAUSEA Metoprolol Tartrate (Lopressor) 12.5 mg PO BID [facility] Last Admin: 04/27/17 09:18 Dose: 12.5 mg Ondansetron HCl (Zofran) 4 mg IVPUSH Q8H PRN PRN Reason: Nausea/Vomiting Tacrolimus 1 Mg Cap (*Patient's Own*) 0 each PO DAILY [facility] Last Admin: 04/27/17 09:19 Dose: 2 each Mycophenolate Mofetil 500mg Tabs * Patient's Own* 0 each PO Q12HR [facility] Last Admin: 04/27/17 09:19 Dose: 1 each Tacrolimus 1 Mg Cap (*Patient's Own*) 0 each PO DAILY@1999 [facility] Last Admin: 04/26/17 21:45 Dose: 1 each Sodium Chloride (Saline Flush) 10 ml FLUSH ASDIRECTED PRN PRN Reason: Keep Vein Open Last Admin: 04/23/17 09:54 Dose: 10 ml Temazepam (Restoril) 15 mg PO BEDTIME PRN PRN Reason: Insomnia Discontinued Medications Acetaminophen (Tylenol) 650 mg PO NOW ONE Stop: 04/24/17 08:02 Last Admin: 04/24/17 08:28 Dose: 650 mg Aspirin (Ecotrin) 325 mg PO DAILY [facility] Diatrizoate Meglum/Diatrizoate Sod (Gastrografin 37%) 90 ml PO ONETIME ONE Stop: 04/23/17 12:30 Last Admin: 04/23/17 12:50 Dose: 90 ml Famotidine (Pepcid) 20 mg IVPUSH ONETIME ONE Stop: 04/23/17 09:48 Last Admin: 04/23/17 10:01 Dose: 20 mg Famotidine (Pepcid) 20 mg IVPUSH DAILY [facility] Last Admin: 04/25/17 08:09 Dose: 20 mg Sodium Chloride (Normal Saline) 1,000 mls @ 999 mls/hr IV ONETIME [facility] Last Admin: 04/23/17 10:02 Dose: 999 mls/hr Sodium Chloride (Normal Saline) 1,000 mls @ 999 mls/hr IV ONETIME [facility] Last Admin: 04/23/17 11:25 Dose: 999 mls/hr Lactated Ringer's (Ringers, Lactated) 1,000 mls @ 100 mls/hr IV ASDIRECTED [facility] Piperacillin Sod/Tazobactam (Sod 4.5 gm/ Sodium Chloride) 100 mls @ 200 mls/hr IV ONETIME ONE Stop: 04/23/17 16:44 Last Admin: 04/23/17 16:59 Dose: 200 mls/hr Metronidazole 500 mg/ Premix 100 mls @ 100 mls/hr IV Q8H [facility] Stop: 04/26/17 16:01 Last Admin: 04/26/17 10:02 Dose: 100 mls/hr Piperacillin Sod/Tazobactam (Sod 4.5 gm/ Sodium Chloride) 100 mls @ 25 mls/hr IV Q8H [facility] Stop: 04/26/17 16:01 Last Admin: 04/26/17 10:02 Dose: 25 mls/hr Sodium Chloride (Sodium Chloride 0.45%) 1,000 mls @ 999 mls/hr IV ASDIRECTED [facility] Stop: 04/24/17 00:01 Last Admin: 04/23/17 23:32 Dose: 999 mls/hr Sodium Chloride (Sodium Chloride 0.45%) 1,000 mls @ 150 mls/hr IV ASDIRECTED [facility] Last Admin: 04/25/17 04:23 Dose: 150 mls/hr Magnesium Sulfate 2 gm/ Premix 50 mls @ 25 mls/hr IV ONETIME ONE Stop: 04/24/17 13:59 Last Admin: 04/24/17 13:22 Dose: 25 mls/hr Magnesium Sulfate 2 gm/ Premix 50 mls @ 25 mls/hr IV ONETIME ONE Stop: 04/25/17 10:19 Last Admin: 04/25/17 10:22 Dose: 25 mls/hr Metronidazole (Flagyl 500 Mg In Ns 100 Ml) Confirm Administered Dose 100 mls @ as directed .ROUTE .STK-MED ONE Stop: 04/25/17 15:37 Last Admin: 04/25/17 16:56 Dose: Not Given Magnesium Oxide (Magnesium Oxide) 800 mg PO ONETIME ONE Stop: 04/26/17 19:01 Last Admin: 04/26/17 19:18 Dose: 800 mg Metoclopramide HCl (Reglan) 10 mg IVPUSH Q6H [facility] Last Admin: 04/24/17 09:34 Dose: 10 mg Mycophenolate Mofetil (Cellcept) 500 mg PO Q12HR [facility] Last Admin: 04/23/17 21:34 Dose: 500 mg Ondansetron HCl (Zofran) 4 mg IVPUSH ONETIME ONE Stop: 04/23/17 09:48 Last Admin: 04/23/17 10:00 Dose: 4 mg Tacrolimus (Prograf) 1 mg PO 2000 [facility] Last Admin: 04/23/17 21:33 Dose: 1 mg - Exam Quality Assessment: Reports: DVT prophylaxis General: Reports: alert, oriented, cooperative, no acute distress HEENT: Reports: Pupils equal, Pupils reactive, EOMI Neck: Reports: supple, trachea midline, no JVD Lungs: Reports: Clear to auscultation, Normal respiratory effort Cardiovascular: Reports: Regular Rate, Regular Rhythm Abdomen: Reports: bowel sounds present, soft, no tenderness, no distension (Male) Exam: Deferred Rectal (Males) Exam: Deferred Back Exam: Reports: Normal Inspection Extremities: Reports: no edema, normal pulses Skin: Reports: warm Neurological: Reports: no new focal deficit, normal gait, normal speech Psy/Mental Status: Reports: alert, normal affect, normal mood *Q Meaningful Use (DIS) - VTE *Q VTE Criteria *Q: - Stroke *Q Stroke Criteria *Q: - AMI *Q AMI Criteria *Q:
== END 2017-04-27 10:40 | disposition home or self-care (01) | DRG 682 ==
LOC: JD.ED 08:56 → JD.MS 13:15
PROVIDERS: ADMIT Internal Medicine Cardiovascular Disease; ATTEND Internal Medicine Cardiovascular Disease
DX: I12.0 Hypertensive chronic kidney disease with stage 5 chronic kidney disease or end stage renal disease (principal); N18.6 End stage renal disease; N17.9 Acute kidney failure, unspecified; Z94.0 Kidney transplant status; T86.10 Unspecified complication of kidney transplant; K57.92 Diverticulitis of intestine, part unspecified, without perforation or abscess without bleeding; Z99.2 Dependence on renal dialysis; E78.5 Hyperlipidemia, unspecified; E83.42 Hypomagnesemia; L27.0 Generalized skin eruption due to drugs and medicaments taken internally; Z79.899 Other long term (current) drug therapy
CPT/HCPCS: 36415; 74176; 74176-26; 80048; 80053; 80061; 80197; 81001; 83735; 84100; 85025; 86140; 87040; 96361; 96374; 96375; 97161-GP; 97165-GO; 99284; 99285-25; A9270-GY; J2405; J2543; J2765; J3475; J7030; J7040; J7050; Q9963